=== PATIENT | male | born 1965 | race African-American/Black ===

== ENCOUNTER 2018-08-26 15:27 | Inpatient (IN) | payer OTHER ==
[2018-08-26 17:45] VITALS: BMI 19.5
--- NOTE | 2018-08-26 20:23 | HP ---
CIWA Score - Admission Criteria OASAS Guidelines: Admission for Medically Managed Detox: Requires at least one of the followin. CIWA greater than 12 2. Seizures within the past 24 hours 3. Delirium tremens within the past 24 hours 4. Hallucinations within the past 24 hours 5. Acute intervention needed for co occurring medical disorder 6. Acute intervention needed for co occurring psychiatric disorder 7. Severe withdrawal that cannot be handled at a lower level of care (continued vomiting, continued diarrhea, abnormal vital signs) requiring intravenous medication and/or fluids 8. Admission ROS [facility] - HPI Chief Complaint: Seeking admission to Rehab. Allergies/Adverse Reactions: Allergies Allergy/AdvReac Type Severity Reaction Status Date / Time No Known Allergies Allergy Verified 08/26/18 20:16 History of Present Illness: 53 years old male is seeking admission to Rehab. This is his first admission to [facility]. He has medical history of HIV+ and Hep. C. He denies suicidal ideation at this time. Exam Limitations: No Limitations - Ebola screening Have you traveled outside of the country in the last 21 days: No Have you had contact with anyone from an Ebola affected area: No Have you been sick,other than usual withdrawal symptoms: No - Review of Systems Constitutional: No Symptoms Reported EENT: reports: No Symptoms Reported Respiratory: reports: No Symptoms reported Cardiac: reports: No Symptoms Reported GI: reports: No Symptoms Reported : reports: No Symptoms Reported Musculoskeletal: reports: No Symptoms Reported Integumentary: reports: No Symptoms Reported Neuro: reports: No Symptoms reported Endocrine: reports: No Symptoms Reported Hematology: reports: No Symptoms Reported Psychiatric: reports: No Sypmtoms Reported, Mood/Affect Appropiate, Orientated x3 Other Systems: Reviewed and Negative Patient History - Patient Medical History Hx Anemia: No Hx Asthma: No Hx Chronic Obstructive Pulmonary Disease (COPD): No Hx Cancer: No Hx Cardiac Disorders: No Hx Congestive Heart Failure: No Hx Hypertension: No Hx Hypercholesterolemia: No Hx Pacemaker: No HX Cerebrovascular Accident: No Hx Seizures: No Hx Dementia: No Hx Diabetes: No Hx Gastrointestinal Disorders: No Hx Liver Disease: No Hx Genitourinary Disorders: No Hx Sexually Transmitted Disorders: No Hx Renal Disease (ESRD): No Hx Thyroid Disease: No Hx Human Immunodeficiency Virus (HIV): Yes (Diagnosed in 1985 - on medication) Hx Hepatitis C: Yes (Not on medication) Hx Depression: No Hx Suicide Attempt: No Hx Bipolar Disorder: No Hx Schizophrenia: No - Patient Surgical History Past Surgical History: No - PPD History Previous Implant?: Yes Documented Results: Negative w/o proof Implanted On Prior R Admission?: No PPD to be Administered?: Yes - Reproductive History Patient is a Female of Child Bearing Age (11 -55 yrs old): No (MALE) - Smoking Cessation Smoking history: Never smoked Have you smoked in the past 12 months: No Hx Chewing Tobacco Use: No Initiated information on smoking cessation: No - Substance & Tx. History Hx Alcohol Use: No Hx Substance Use: Yes Substance Use Type: Heroin Hx Substance Use Treatment: Yes - Substances Abused Heroin Route: Inhalation Frequency: Daily Amount used: 50 bags Age of first use: 16 Date of Last Use: 08/21/18 Family Disease History - Family Disease History Family History: Denies Admission Physical Exam [facility] - Vital Signs Vital Signs: Vital Signs - 24 hr 08/26/18 17:43 Temperature 97.6 F Pulse Rate 66 Respiratory 18 Rate Blood Pressure 129/79 - Physical General Appearance: Yes: Within Normal Limits HEENTM: Yes: EOMI, Normal ENT Inspection, Normocephalic, Normal Voice, STEFANO Respiratory: Yes: Lungs Clear, Normal Breath Sounds, No Respiratory Distress Neck: Yes: Supple Breast: Yes: Breast Exam Deferred Cardiology: Yes: Regular Rhythm, Regular Rate Abdominal: Yes: Normal Bowel Sounds, Soft Genitourinary: Yes: Within Normal Limits Back: Yes: Normal Inspection Musculoskeletal: Yes: Within Normal Limits Extremities: Yes: Normal Inspection Neurological: Yes: accountant assistant II-XII NML intact, Alert, Normal Mood/Affect Integumentary: Yes: Warm Lymphatic: Yes: Within Normal Limits - Diagnostic (1) HIV (human immunodeficiency virus infection) Current Visit: Yes Status: Chronic (2) Hep C w/o coma, chronic Current Visit: Yes Status: Chronic (3) Opioid dependence Current Visit: Yes Status: Acute Qualifiers: Substance use status: uncomplicated Qualified Code(s): F11.20 - Opioid dependence, uncomplicated Cleared for Admission [facility] - Detox or Rehab [facility] Level of Care: Observation Bed Claeared for Rehab Admission: Yes [facility] Breath Alcohol Content Breath Alcohol Content: 0 Urine Drug Screen - Results Drug Screen Negative: No Urine Drug Screen Results: BZO-Benzodiazepines, MTD-Methadone Inpatient Rehab Admission - Initial Determination Are CD services needed?: Yes Free of communicable disease: Yes Not in need of hospitalization: Yes - Rehab Admission Criteria Previous failed treatment: Yes Poor recovery environment: Yes Comorbidities: Yes Lacks judgement: No Patient is meeting Inpatient Rehab admission criteria:: Yes
[2018-08-26] MEDS ORDERED: ACETAMINOPHEN 325 MG TABLET (FP) PO PRN (20:35)
[2018-08-26] MEDS ORDERED: P-EPHED 60MG/TRIPROLIDI 2.5MG TABLET PO PRN (20:35)
[2018-08-26] MEDS ORDERED: MAGNESIUM CITRATE 300 ML BOTTLE PO PRN (20:35)
[2018-08-26] MEDS ORDERED: MAGNESIUM HYDROX 2400MG/30ML ORAL SUSPENSION 30 ML CUP PO PRN (20:35)
[2018-08-26] MEDS ORDERED: LOPERAMIDE HCL 2 MG CAPSULE PO PRN (20:35)
[2018-08-26] MEDS ORDERED: guaiFENesin/D-METHORPHAN HB 10 ML UNIT-DOSE CUPS PO PRN (20:35)
[2018-08-26] MEDS ORDERED: TUBERCULIN PPD 5 TU/0.1ML VIAL ID ONE ×2 (22:19→23:36)
[2018-08-26] MEDS: THIAMINE HCL 100 MG TABLET (FP) PO SCH (22:22)
[2018-08-26] MEDS: IBUPROFEN 400 MG TABLET (FP) PO PRN (22:22)
[2018-08-26] MEDS: MELATONIN 5 MG TABLETS PO PRN (22:22)
[2018-08-26 23:21] LABS: URINE APPEARANCE CLEAR; URINE BILIRUBIN NEGATIVE (<2.0 mg/dL); URINE COLOR YELLOW; URINE GLUCOSE (UA) NEGATIVE (NEGATIVE); URINE KETONE NEGATIVE (NEGATIVE); URINE LEUK ESTERASE NEGATIVE (NEGATIVE); URINE NITRITE NEGATIVE (NEGATIVE); URINE PROTEIN NEGATIVE (NEGATIVE); URINE UROBILINOGEN NEGATIVE mg/dL (0.2-1.0)
[2018-08-27] MEDS: IBUPROFEN 400 MG TABLET (FP) PO PRN ×2 (06:44→15:00)
[2018-08-27] MEDS: MAG HYDROX/AL HYDROX/SIMETH 30 ML UNIT-DOSE CUP PO PRN ×3 (08:47→22:20)
[2018-08-27] MEDS: PRENATAL VITAMINS W/ FOLIC ACID TABLET (FP) PO SCH (10:13)
[2018-08-27 10:42] LABS: HEMATOCRIT 41.5 % (35.4-49); HEMOGLOBIN 13.1 GM/dL (11.7-16.9); MCH 29.7 pg (25.7-33.7); MCHC 31.6 g/dl (32.0-35.9); MEAN CELL VOLUME 93.8 fl (80-96); MEAN PLT VOLUME 9.8 fl (7.5-11.1); PLATELET COUNT 224 K/MM3 (134-434); RBC 4.42 M/mm3 (4.00-5.60); RDW 13.5 % (11.9-15.9); WHITE BLOOD COUNT 6.3 K/mm3 (4.0-10.0)
[2018-08-27 10:56] LABS: ALBUMIN 3.9 g/dl (3.4-5.0); ALK PHOS 118 U/L (45-117); ANION GAP 8 MMOL/L (8-16); BILIRUBIN,TOTAL 0.2 mg/dL (0.2-1); BLOOD UREA NITROGEN 22 mg/dL (7-18); CALCIUM 9.7 mg/dL (8.5-10.1); CHLORIDE 101 mmol/L (98-107); CO2 28 mmol/L (21-32); CREATININE 1.2 mg/dL (0.55-1.3); GLUCOSE,RANDOM 110 mg/dL (74-106); POTASSIUM 4.6 mmol/L (3.5-5.1); SGOT/AST 43 U/L (15-37); SGPT/ALT 44 U/L (13-61); SODIUM 137 mmol/L (136-145); TOT PROT 9.8 g/dl (6.4-8.2)
--- NOTE | 2018-08-27 11:59 | EKG ---
Test Reason : Blood Pressure : / mmHG Vent. Rate : 071 BPM Atrial Rate : 071 BPM P-R Int : 176 ms QRS Dur : 094 ms QT Int : 406 ms P-R-T Axes : 063 -47 022 degrees QTc Int : 441 ms NORMAL SINUS RHYTHM POSSIBLE LEFT ATRIAL ENLARGEMENT LEFT AXIS DEVIATION INCOMPLETE RIGHT BUNDLE BRANCH BLOCK LEFT VENTRICULAR HYPERTROPHY CANNOT RULE OUT SEPTAL INFARCT , AGE UNDETERMINED ABNORMAL ECG WHEN COMPARED WITH ECG OF 26-AUG-2018 23:10, LEFT ANTERIOR FASCICULAR BLOCK IS NO LONGER PRESENT INCOMPLETE RIGHT BUNDLE BRANCH BLOCK IS NOW PRESENT MINIMAL CRITERIA FOR SEPTAL INFARCT ARE NOW PRESENT Confirmed by LUDMILA HOLBROOK MD ([id number]) on 08/27/2018 11:59:25 AM Referred By: Confirmed By:LUDMILA HOLBROOK MD
--- NOTE | 2018-08-27 12:00 | EKG ---
Test Reason : Blood Pressure : / mmHG Vent. Rate : 072 BPM Atrial Rate : 072 BPM P-R Int : 178 ms QRS Dur : 078 ms QT Int : 378 ms P-R-T Axes : 082 -60 057 degrees QTc Int : 413 ms NORMAL SINUS RHYTHM LEFT ANTERIOR FASCICULAR BLOCK ABNORMAL ECG NO PREVIOUS ECGS AVAILABLE Confirmed by LUDMILA HOLBROOK MD ([id number]) on 08/27/2018 12:00:05 PM Referred By: Confirmed By:LUDMILA HOLBROOK MD
--- NOTE | 2018-08-27 12:35 | HP ---
Psychiatrist Admission - Data Date of interview: 08/27/18 Admission source: [facility] Identifying data: Patient is a 53 year old single male, father of two, unemployed, homeless, and is supported by [facility]. This is patient's first admission to detox at [facility]. Patient admitted to for opioid dependence. Medical History: HIV, Hep C Psychiatric History: Patient denies h/o psychiatric hospitalization, outpatient care, and suicide attempt. Physical/Sexual Abuse/Trauma History: denies. Vital Signs: Vital Signs - 24 hr 08/26/18 08/26/18 08/27/18 17:43 22:24 00:30 Temperature 97.6 F 98.0 F Pulse Rate 66 68 Respiratory 18 18 18 Rate Blood Pressure 129/79 120/75 08/27/18 08/27/18 03:30 06:48 Temperature 98.8 F Pulse Rate 67 Respiratory 18 18 Rate Blood Pressure 120/84 Allergies/Adverse Reactions: Allergies Allergy/AdvReac Type Severity Reaction Status Date / Time No Known Allergies Allergy Verified 08/26/18 20:16 Date of last physical exam: 08/27/18 Concur with the findings of this exam: Yes - Substance Abuse/Tx History Hx Alcohol Use: No Hx Substance Use: Yes (Heroin- 50 bags daily) Substance Use Type: Heroin Hx Substance Use Treatment: Yes (This is patient's first rehab.) Mental Status Exam - Mental Status Exam Alert and Oriented to: Time, Place, Person Cognitive Function: Good Patient Appearance: Well Groomed Mood: Euthymic Affect: Mood Congruent Patient Behavior: Cooperative Speech Pattern: Appropriate Voice Loudness: Mildly Soft/Quiet Thought Process: Intact, Goal Oriented Thought Disorder: Not Present Hallucinations: Denies Suicidal Ideation: Denies Homicidal Ideation: Denies Insight/Judgement: Poor Sleep: Poorly Appetite: Fair Muscle strength/Tone: Normal Gait/Station: Normal Psychiatric Findings - Problem List (Thelma 1, 2,3) (1) Substance-induced sleep disorder Current Visit: Yes Status: Acute (2) Opioid dependence Current Visit: Yes Status: Acute Qualifiers: Substance use status: uncomplicated Qualified Code(s): F11.20 - Opioid dependence, uncomplicated - Initial Treatment Plan Initial Treatment Plan: Psychoeducation provided. Rehab in progress. Will order Trazodone 50mg qhs. Patient made aware of the risk of priapism when accepting trazodone. Verbal consent given.
--- NOTE | 2018-08-27 13:46 | PN ---
[facility] Progress Note Note: PT IS A NEW ADMIT WHO WAS DETOXED FROM OPIOID AT [facility] AND REFERRED HERE FOR REHAB. PT REPORTS HE COMPLETED 08/26/18 BEFORE REHAB. PT IS ON ATRIPLA I TAB PO DAILY AND WANTS IT AT HS. PT C/O MUSCLE ACHES AND IRRITABILITY. Vital Signs 08/27/18 06:48 Temperature 98.8 F Pulse Rate 67 Respiratory 18 Rate Blood Pressure 120/84 Laboratory Tests 08/26/18 08/27/18 08/27/18 22:00 07:40 07:40 WBC 6.3 RBC 4.42 Hgb 13.1 Hct 41.5 MCV 93.8 MCH 29.7 MCHC 31.6 L RDW 13.5 Plt Count 224 MPV 9.8 Sodium 137 Potassium 4.6 Chloride 101 Carbon Dioxide 28 Anion Gap 8 BUN 22 H Creatinine 1.2 Creat Clearance w eGFR > 60 Random Glucose 110 H Calcium 9.7 Total Bilirubin 0.2 AST 43 H ALT 44 Alkaline Phosphatase 118 H Total Protein 9.8 H Albumin 3.9 Urine Color Yellow Urine Appearance Clear Urine pH 6.0 Ur Specific Lucas 1.023 Urine Protein Negative Urine Glucose (UA) Negative Urine Ketones Negative Urine Blood Negative Urine Nitrite Negative Urine Bilirubin Negative Urine Urobilinogen Negative Ur Leukocyte Esterase Negative RPR Titer 08/27/18 07:40 WBC RBC Hgb Hct MCV MCH MCHC RDW Plt Count MPV Sodium Potassium Chloride Carbon Dioxide Anion Gap BUN Creatinine Creat Clearance w eGFR Random Glucose Calcium Total Bilirubin AST ALT Alkaline Phosphatase Total Protein Albumin Urine Color Urine Appearance Urine pH Ur Specific Lucas Urine Protein Urine Glucose (UA) Urine Ketones Urine Blood Urine Nitrite Urine Bilirubin Urine Urobilinogen Ur Leukocyte Esterase RPR Titer Nonreactive NAD PLAN:CLONIDINE 0.1 MG PO BID PRN FLEXERIL 10 MG PO TID REORDER ATRIPLA 1 TAB PO HS RE-EVALUATE FOR SUBOXONE TREATMENT IF DESIRED.
[2018-08-27] MEDS: THIAMINE HCL 100 MG TABLET (FP) PO SCH (21:23)
[2018-08-27] MEDS: EFAVIRENZ 600 MG TABLET PO SCH (21:23)
[2018-08-27] MEDS: EMTRICITABINE 200MG/TENOFOVIR 300MG PO SCH (21:24)
[2018-08-27] MEDS: traZODone HCL 50 MG TABLET (FP) PO SCH (21:25)
[2018-08-27] MEDS: CYCLOBENZAPRINE HCL 10 MG TABLET (FP) PO SCH (21:25)
[2018-08-27] MEDS: cloNIDine HCL 0.1 MG TABLET PO SCH (21:26)
[2018-08-27] MEDS ORDERED: PATIENT'S OWN MEDICATION (NON-FORMULARY) (Efavirenz/Emtricitab/Tenofovir 1 TAB) PO SCH (22:00)
[2018-08-27] MEDS: MELATONIN 5 MG TABLETS PO PRN (22:20)
[2018-08-28] MEDS: IBUPROFEN 400 MG TABLET (FP) PO PRN (05:33)
[2018-08-28] MEDS: CYCLOBENZAPRINE HCL 10 MG TABLET (FP) PO SCH ×3 (05:34→21:29)
--- NOTE | 2018-08-28 09:40 | PN ---
[facility] Progress Note Note: Pt requesting suboxone treatment. Says he has been on this before and would like to restart. Was taking a lot heroin- last use about 10 days ago- went to methadone detox and now in rehab. Pt states that he feels like he is in withdrawal- whole body aches/pain. Will start suboxone 8mg BID
[2018-08-28] MEDS: cloNIDine HCL 0.1 MG TABLET PO SCH ×2 (10:09→21:29)
[2018-08-28] MEDS: PRENATAL VITAMINS W/ FOLIC ACID TABLET (FP) PO SCH (10:09)
[2018-08-28] MEDS: BUPRENORPHINE/NALOXONE 8 MG/2 MG FILM PACKET SL SCH ×2 (10:11→21:29)
[2018-08-28] MEDS: THIAMINE HCL 100 MG TABLET (FP) PO SCH (21:29)
[2018-08-28] MEDS: traZODone HCL 50 MG TABLET (FP) PO SCH (21:29)
[2018-08-28] MEDS: EMTRICITABINE 200MG/TENOFOVIR 300MG PO SCH (21:32)
[2018-08-28] MEDS: EFAVIRENZ 600 MG TABLET PO SCH (21:32)
[2018-08-28] MEDS: MELATONIN 5 MG TABLETS PO PRN (21:33)
[2018-08-29] MEDS: CYCLOBENZAPRINE HCL 10 MG TABLET (FP) PO SCH ×3 (06:24→21:20)
[2018-08-29] MEDS: MENTHOL/PHENOL 1 EACH UD MM PRN ×3 (06:26→14:13)
[2018-08-29] MEDS: PRENATAL VITAMINS W/ FOLIC ACID TABLET (FP) PO SCH (09:44)
[2018-08-29] MEDS: BUPRENORPHINE/NALOXONE 8 MG/2 MG FILM PACKET SL SCH ×2 (09:44→21:20)
[2018-08-29] MEDS: cloNIDine HCL 0.1 MG TABLET PO SCH ×2 (09:44→21:20)
[2018-08-29] MEDS: IBUPROFEN 400 MG TABLET (FP) PO PRN (14:49)
[2018-08-29] MEDS: THIAMINE HCL 100 MG TABLET (FP) PO SCH (21:20)
[2018-08-29] MEDS: traZODone HCL 50 MG TABLET (FP) PO SCH (21:20)
[2018-08-29] MEDS: EMTRICITABINE 200MG/TENOFOVIR 300MG PO SCH (21:21)
[2018-08-29] MEDS: MELATONIN 5 MG TABLETS PO PRN (21:21)
[2018-08-29] MEDS: EFAVIRENZ 600 MG TABLET PO SCH (21:21)
[2018-08-30] MEDS: CYCLOBENZAPRINE HCL 10 MG TABLET (FP) PO SCH ×3 (06:26→21:21)
[2018-08-30] MEDS: BUPRENORPHINE/NALOXONE 8 MG/2 MG FILM PACKET SL SCH ×2 (10:08→21:23)
[2018-08-30] MEDS: PRENATAL VITAMINS W/ FOLIC ACID TABLET (FP) PO SCH (10:08)
[2018-08-30] MEDS: cloNIDine HCL 0.1 MG TABLET PO SCH ×2 (10:08→21:21)
[2018-08-30] MEDS: THIAMINE HCL 100 MG TABLET (FP) PO SCH (21:21)
[2018-08-30] MEDS: traZODone HCL 50 MG TABLET (FP) PO SCH (21:21)
[2018-08-30] MEDS: EMTRICITABINE 200MG/TENOFOVIR 300MG PO SCH (21:22)
[2018-08-30] MEDS: EFAVIRENZ 600 MG TABLET PO SCH (21:22)
[2018-08-30] MEDS: MELATONIN 5 MG TABLETS PO PRN (21:23)
[2018-08-31] MEDS: MENTHOL/PHENOL 1 EACH UD MM PRN (06:35)
[2018-08-31] MEDS: CYCLOBENZAPRINE HCL 10 MG TABLET (FP) PO SCH (06:35)
[2018-08-31 07:01] VITALS: BP 132/89; PULSE 67; TEMP 98.8
[2018-08-31] MEDS: PRENATAL VITAMINS W/ FOLIC ACID TABLET (FP) PO SCH (10:20)
[2018-08-31] MEDS: BUPRENORPHINE/NALOXONE 8 MG/2 MG FILM PACKET SL SCH (10:21)
[2018-08-31] MEDS: cloNIDine HCL 0.1 MG TABLET PO SCH (10:21)
== END 2018-08-31 10:50 | disposition left against medical advice (07) | DRG 770 ==
LOC: YASAS 15:27 → Y5N 20:39
PROVIDERS: ADMIT Psychiatry & Neurology Psychiatry; ATTEND Psychiatry & Neurology Psychiatry
PROC: HZ42ZZZ Group Counseling for Substance Abuse Treatment, Cognitive-Behavioral (ICD-10-PCS; principal; 2018-08-26)
DX: F11.20 Opioid dependence, uncomplicated (principal); F19.282 Other psychoactive substance dependence with psychoactive substance-induced sleep disorder; Z21 Asymptomatic human immunodeficiency virus [HIV] infection status; B18.2 Chronic viral hepatitis C; Z59.0 Homelessness
CPT/HCPCS: 36415; 80053; 81003; 85027; 86593; 93005; 93010; J0735

== ENCOUNTER 2019-11-11 19:03 | Inpatient (IN) | payer OTHER ==
--- NOTE | 2019-11-11 19:55 | BHS.RME ---
Substance Use & Tx History - Substance Use History Opiates (Heroin) Substance amount: 5 bundles Frequency of use: Daily Substance route: Inhalation (ex: sniffing or snorting), Injection (ex: intravenous or skin popping) Date of Last Use: 11/11/19 (this am) Cocaine (Powder) Substance amount: 1 vial Frequency of use: Less than 3 times per week Substance route: Smoking Date of Last Use: 11/09/19 Physical/Psych/Mental Status - Behavior General Behavior: Increased activity (restlessness, agitation) Eye Contact: Decreased - Cooperativeness Cooperativeness: Reluctant - Thinking Thought content: Future oriented - Physical Health Problems Is patient presently having any pain?: Yes (r/t withdrawal ) Does patient presently have any injuries (include location): No Does patient currently have a fever: No Is patient : No COWS - Scale Resting Pulse: 0= [place] 80 or Below Sweatin= Chills/Flushing Restless Observation: 0= Sits Still Pupil Size: 2= Moderately Dilated (Pupils = 3 mm) Bone or Joint Aches: 1= Mild Discomfort Runny Nose/ Eye Tearin= None GI Upset > 30mins: 2= Nausea/Diarrhea Tremor Observation: 1= Tremor [place], Not Seen Yawning Observation: 0= None Anxiety or Irritability: 2=Irritable/Anxious Goose Flesh Skin: 0=Smooth Skin COWS Score: 9 CIWA Nausea/Vomitin-No Nausea/No Vomiting Muscle Tremors: 3 Anxiety: 4-Mod. Anxious/Guarded Agitation: 1-Slight > Activity Paroxysmal Sweats: No Perspiration Orientation: 0-Oriented Tacttile Disturbances: 0-None Auditory Disturbances: 0-None Visual Disturbances: 0-None Headache: 0-None Present CIWA-Ar Total Score: 8
[2019-11-11 20:49] VITALS: BMI 20.9
--- NOTE | 2019-11-11 21:49 | HP ---
"COWS - Scale Resting Pulse: 0= [place] 80 or Below Sweatin= Chills/Flushing Restless Observation: 0= Sits Still Pupil Size: 2= Moderately Dilated (Pupils = 4 mm) Bone or Joint Aches: 1= Mild Discomfort Runny Nose/ Eye Tearin= None GI Upset > 30mins: 2= Nausea/Diarrhea Tremor Observation: 1= Tremor [place], Not Seen Yawning Observation: 0= None Anxiety or Irritability: 2=Irritable/Anxious Goose Flesh Skin: 0=Smooth Skin COWS Score: 9 (Co-morbidity: HIV+) CIWA Score Nausea/Vomitin-No Nausea/No Vomiting Muscle Tremors: 3 Anxiety: 4-Mod. Anxious/Guarded Agitation: 1-Slight > Activity Paroxysmal Sweats: No Perspiration Orientation: 0-Oriented Tacttile Disturbances: 0-None Auditory Disturbances: 0-None Visual Disturbances: 0-None Headache: 0-None Present CIWA-Ar Total Score: 8 - Admission Criteria OASAS Guidelines: Admission for Medically Managed Detox: Requires at least one of the followin. CIWA greater than 12 2. Seizures within the past 24 hours 3. Delirium tremens within the past 24 hours 4. Hallucinations within the past 24 hours 5. Acute intervention needed for co occurring medical disorder 6. Acute intervention needed for co occurring psychiatric disorder 7. Severe withdrawal that cannot be handled at a lower level of care (continued vomiting, continued diarrhea, abnormal vital signs) requiring intravenous medication and/or fluids 8. Admitting History and Physical - Smoking History Smoking history: Never smoked Have you smoked in the past 12 months: No - Alcohol/Substance Use Hx Alcohol Use: No Admission ROS [facility] Chief Complaint: Here because want to stop using heroin. Allergies/Adverse Reactions: Allergies Allergy/AdvReac Type Severity Reaction Status Date / Time No Known Allergies Allergy Verified 11/11/19 20:46 History of Present Illness: 54 yo with withdrawal symptoms seeking heroin detox. Last detox 2 months ago and relapsed 1 week after discharge. Denies hx seizures, blackouts or overdose. Heroin use reviewed. [facility] uses 5 bundles/day both IV and nasally. [facility] last used this a.m. [facility] has a narcan kit at home. Cocaine/Crack use intermittently. (Smokes. Denies methadone or suboxone treatment programs in the past. Denies alcohol use. Denies nicotine use. PMHx: HIV+ (States not taking HIV meds) 2018: Abnormal EKG noted. MHHx: Denies thoughts of harming self or others. SHx: Domiciled. Unemployed. Denies legal problems. Search Terms: Ezequiel Gist, 1965 Search Date: 11/11/2019 09:48:24 PM The Drug Utilization Report below displays all of the controlled substance prescriptions, if any, that your patient has filled in the last twelve months. The information displayed on this report is compiled from pharmacy submissions to the Department, and accurately reflects the information as submitted by the pharmacies. This report was requested by: Rut Rogers | Reference #: [id number] There are no results for the search terms that you entered. Exam Limitations: No Limitations - Ebola screening Have you traveled outside of the country in the last 21 days: No Have you had contact with anyone from an Ebola affected area: No Have you been sick,other than usual withdrawal symptoms: No Do you have a fever: No - Review of Systems Constitutional: Chills, Diaphoresis, Unintentional Wgt. Loss EENT: reports: No Symptoms Reported Respiratory: reports: No Symptoms reported Cardiac: reports: No Symptoms Reported GI: reports: Diarrhea (Last BM 10 min ago, soft, brown) : reports: No Symptoms Reported Musculoskeletal: reports: No Symptoms Reported Integumentary: reports: No Symptoms Reported Neuro: reports: No Symptoms reported Endocrine: reports: No Symptoms Reported Hematology: reports: Other (HIV) Psychiatric: reports: Judgement Intact, Orientated x3, Agitated Patient History - Patient Medical History Hx Anemia: No Hx Asthma: No Hx Chronic Obstructive Pulmonary Disease (COPD): No Hx Cancer: No Hx Cardiac Disorders: No Hx Congestive Heart Failure: No Hx Hypertension: No Hx Hypercholesterolemia: No Hx Pacemaker: No HX Cerebrovascular Accident: No Hx Seizures: No Hx Dementia: No Hx Diabetes: No Hx Gastrointestinal Disorders: No Hx Liver Disease: No Hx Genitourinary Disorders: No Hx Sexually Transmitted Disorders: No Hx Renal Disease (ESRD): No Hx Thyroid Disease: No Hx Human Immunodeficiency Virus (HIV): Yes (Diagnosed in 1985 - on medication) Hx Hepatitis C: Yes (Not on medication) Hx Depression: No Hx Suicide Attempt: No Hx Bipolar Disorder: No Hx Schizophrenia: No - Patient Surgical History Past Surgical History: No Hx Neurologic Surgery: No Hx Cataract Extraction: No Hx Cardiac Surgery: No Hx Lung Surgery: No Hx Breast Surgery: No Hx Breast Biopsy: No Hx Abdominal Surgery: No Hx Appendectomy: No Hx Cholecystectomy: No Hx Genitourinary Surgery: No Hx Section: No Hx Orthopedic Surgery: No Anesthesia Reaction: No - PPD History Previous Implant?: Yes Documented Results: Negative w/proof Implanted On Prior [facility] Admission?: Yes Date: 08/28/18 PPD to be Administered?: Yes - Smoking Cessation Smoking history: Never smoked Have you smoked in the past 12 months: No Hx Chewing Tobacco Use: No Initiated information on smoking cessation: No - Substance & Tx. History Hx Alcohol Use: No Hx Substance Use: Yes Substance Use Type: Cocaine, Heroin, Opiates Hx Substance Use Treatment: Yes (detox, ) - Substances abused Heroin Substance route: Injection Frequency: Daily Amount used: 50 bags Age of first use: 16 Date of last use: 11/11/19 Admission Physical Exam [facility] - Vital Signs Vital Signs: Vital Signs - 24 hr 11/11/19 11/11/19 20:46 20:49 Temperature 97.8 F 97.8 F Pulse Rate 66 66 Respiratory 18 18 Rate Blood Pressure 122/70 122/70 - Physical General Appearance: Yes: Mild Distress, Thin, Tremorous (Mild tremors felt), Irritable, Sweating (Increased facial moisture) HEENTM: Yes: EOMI, Hearing grossly Normal, Normocephalic, STEFANO (Pupils = 4 mm), Pharynx Normal, Other (Superficial abrasion (L) cheek) Respiratory: Yes: Lungs Clear (Pulse ox =96%), Normal Breath Sounds, No Respiratory Distress Neck: Yes: No masses,lesions,Nodules, Supple Breast: Yes: Breast Exam Deferred Cardiology: Yes: Regular Rhythm, Regular Rate, S1, S2, Murmur Abdominal: Yes: Non Tender, Flat, Soft, Increased Bowel Sounds Genitourinary: Yes: Within Normal Limits Back: Yes: Normal Inspection Musculoskeletal: Yes: full range of Motion, Gait Steady Extremities: Yes: Normal Capillary Refill (periph pulse+), Tremors (Mild tremors felt), Pedal Edema (Srinivasa pedal edema toes to below ankle.) Neurological: Yes: health sanitarian II-XII NML intact, Fully Oriented, Alert, Motor Strength 5/5, Normal Response Integumentary: Yes: Normal Color, Warm, Moist (Increased facial moisture), Other (Decreased skin turgor) Lymphatic: Yes: Within Normal Limits - Diagnostic (1) Opioid dependence with withdrawal Current Visit: Yes Status: Acute (2) Cocaine dependence, uncomplicated Current Visit: Yes Status: Chronic (3) HIV (human immunodeficiency virus infection) Current Visit: Yes Status: Chronic Qualifiers: HIV symptom status: unspecified Qualified Code(s): B20 - Human immunodeficiency virus [HIV] disease (4) Abrasion Current Visit: Yes Status: Acute (5) Cardiac murmur Current Visit: Yes Status: Acute (6) History of abnormal electrocardiogram Current Visit: Yes Status: Chronic (7) Pedal edema Current Visit: Yes Status: Chronic Cleared for Admission S - Detox or Rehab [facility] Level of Care: Medically Managed Detox Regimen/Protocol: Methadone Claeared for Rehab Admission: No Breathalyzer - Breathalyzer Breathalyzer: 0 Urine Drug Screen - Test Device Lot number: [id number] Expiration date: 08/23/21 - Control Is test valid?: Yes - Results Drug screen NEGATIVE: No Urine drug screen results: FILIBERTO-Cocaine, FEN-Fentanyl, MOP-Opiates Inpatient Rehab Admission - Rehab Decision to Admit Inpatient rehab admission?: No"
[2019-11-11] MEDS ORDERED: MAGNESIUM HYDROX 2400MG/30ML ORAL SUSPENSION 30 ML CUP PO PRN (22:09)
[2019-11-11] MEDS ORDERED: cloNIDine HCL 0.1 MG TABLET PO PRN (22:09)
[2019-11-11] MEDS ORDERED: ACETAMINOPHEN 325 MG TABLET (FP) PO PRN ×2 (22:09)
[2019-11-11] MEDS ORDERED: MENTHOL/PHENOL 1 EACH UD MM PRN (22:09)
[2019-11-11] MEDS ORDERED: guaiFENesin 200 MG/10 ML 10 ML UNIT-DOSE CUPS PO PRN (22:09)
[2019-11-11] MEDS ORDERED: MAGNESIUM CITRATE 300 ML BOTTLE PO PRN (22:09)
[2019-11-11] MEDS ORDERED: MAG HYDROX/AL HYDROX/SIMETH 30 ML UNIT-DOSE CUP PO PRN (22:09)
[2019-11-11] MEDS ORDERED: IBUPROFEN 400 MG TABLET (FP) PO PRN (22:09)
[2019-11-11] MEDS ORDERED: BISMUTH SUBSALICYLATE 524 MG/30 ML UD PO PRN (22:09)
[2019-11-11] MEDS ORDERED: METHADONE HCL 10 MG TABLET (FOR DETOX USE ONLY) PO ONE (22:45)
[2019-11-11] MEDS ORDERED: METHADONE (DETOX) 20 MG, METHADONE (DETOX) 5 MG PO ONE (23:52)
[2019-11-11] MEDS ORDERED: METHADONE HCL 10 MG TABLET (FOR DETOX USE ONLY) ONE (23:54)
[2019-11-11] MEDS ORDERED: METHADONE HCL 5 MG TABLET (FOR DETOX USE ONLY) ONE (23:55)
[2019-11-11] MEDS: BACITRACIN 0.9 GM PACKET TP SCH (23:58)
[2019-11-12] MEDS ORDERED: METHADONE HCL 5 MG TABLET (FOR DETOX USE ONLY) ONE (09:38)
[2019-11-12] MEDS ORDERED: METHADONE HCL 10 MG TABLET (FOR DETOX USE ONLY) ONE (09:38)
[2019-11-12 09:49] LABS: HEMATOCRIT 35.5 % (35.4-49); HEMOGLOBIN 11.7 GM/dL (11.7-16.9); MCH 29.4 pg (25.7-33.7); MCHC 32.9 g/dl (32.0-35.9); MEAN CELL VOLUME 89.2 fl (80-96); MEAN PLT VOLUME 9.5 fl (7.5-11.1); PLATELET COUNT 147 K/MM3 (134-434); RBC 3.98 M/mm3 (4.00-5.60); RDW 14.8 % (11.9-15.9); WHITE BLOOD COUNT 3.1 K/mm3 (4.0-10.0)
[2019-11-12] MEDS ORDERED: METHADONE (DETOX) 20 MG, METHADONE (DETOX) 5 MG PO ONE (10:00)
[2019-11-12 10:17] LABS: BILIRUBIN,TOTAL 0.2 mg/dL (0.2-1); BLOOD UREA NITROGEN 23.8 mg/dL (7-18); CALCIUM 8.7 mg/dL (8.5-10.1); TOT PROT 7.1 g/dl (6.4-8.2)
[2019-11-12] MEDS: BACITRACIN 0.9 GM PACKET TP SCH ×2 (10:48→22:45)
[2019-11-12] MEDS: VITAMINS A AND D TOPICAL OINTMENT 60 GM TUBE TP SCH ×2 (10:48→22:45)
[2019-11-12] MEDS: PRENATAL VITAMINS W/ FOLIC ACID TABLET (FP) PO SCH (10:48)
--- NOTE | 2019-11-12 12:11 | EKG ---
Test Reason : Blood Pressure : / mmHG Vent. Rate : 066 BPM Atrial Rate : 066 BPM P-R Int : 176 ms QRS Dur : 078 ms QT Int : 446 ms P-R-T Axes : 068 -41 014 degrees QTc Int : 467 ms NORMAL SINUS RHYTHM LEFT AXIS DEVIATION MINIMAL VOLTAGE CRITERIA FOR LVH, MAY BE NORMAL VARIANT SEPTAL INFARCT (CITED ON OR BEFORE 27-AUG-2018) T WAVE ABNORMALITY, CONSIDER ANTERIOR ISCHEMIA CANNOT RULE OUT SEPTAL INFARCT , AGE UNDETERMINED ABNORMAL ECG CLINICAL CORRELATION IS RECOMMENDED Confirmed by CR POWER MD ([id number]) on 11/12/2019 12:10:55 PM Referred By: Reza Singh Confirmed By:CR POWER MD
--- NOTE | 2019-11-12 14:49 | PN ---
[facility] CIWA - CIWA Score Nausea/Vomitin-Mild Nausea/No Vomiting Muscle Tremors: 2 Anxiety: 2 Agitation: 2 Paroxysmal Sweats: No Perspiration Orientation: 0-Oriented Tacttile Disturbances: 1-Very Mild Itch/Numbness Auditory Disturbances: 0-None Visual Disturbances: 0-None Headache: 2-Mild CIWA-Ar Total Score: 10 S Progress Note (SOAP) Subjective: alert,irritable,anxious,interrupted sleep,pain in the body Objective: 11/12/19 14:46 Vital Signs Temperature 98.2 F 11/12/19 13:11 Pulse Rate 57 L 11/12/19 13:11 Respiratory Rate 18 11/12/19 13:11 Blood Pressure 121/79 11/12/19 13:11 O2 Sat by Pulse Oximetry (%) 11/12/19 14:48 Laboratory Last Values WBC 3.1 K/mm3 (4.0-10.0) L 11/12/19 07:25 RBC 3.98 M/mm3 (4.00-5.60) L 11/12/19 07:25 Hgb 11.7 GM/dL (11.7-16.9) 11/12/19 07:25 Hct 35.5 % (35.4-49) 11/12/19 07:25 MCV 89.2 fl (80-96) 11/12/19 07:25 MCH 29.4 pg (25.7-33.7) 11/12/19 07:25 MCHC 32.9 g/dl (32.0-35.9) 11/12/19 07:25 RDW 14.8 % (11.9-15.9) 11/12/19 07:25 Plt Count 147 K/MM3 (134-434) D 11/12/19 07:25 MPV 9.5 fl (7.5-11.1) 11/12/19 07:25 Sodium 141 mmol/L (136-145) 11/12/19 07:25 Potassium 4.0 mmol/L (3.5-5.1) 11/12/19 07:25 Chloride 111 mmol/L (98-107) H 11/12/19 07:25 Carbon Dioxide 24 mmol/L (21-32) 11/12/19 07:25 Anion Gap 6 MMOL/L (8-16) L 11/12/19 07:25 BUN 23.8 mg/dL (7-18) H 11/12/19 07:25 Creatinine 1.0 mg/dL (0.55-1.3) 11/12/19 07:25 Est GFR (CKD-EPI)AfAm 99.15 11/12/19 07:25 Est GFR (CKD-EPI)NonAf 85.55 11/12/19 07:25 Random Glucose 104 mg/dL (74-106) 11/12/19 07:25 Calcium 8.7 mg/dL (8.5-10.1) 11/12/19 07:25 Total Bilirubin 0.2 mg/dL (0.2-1) 11/12/19 07:25 AST 39 U/L (15-37) H 11/12/19 07:25 ALT 34 U/L (13-61) 11/12/19 07:25 Alkaline Phosphatase 200 U/L (45-117) H 11/12/19 07:25 Total Protein 7.1 g/dl (6.4-8.2) 11/12/19 07:25 Albumin 3.0 g/dl (3.4-5.0) L 11/12/19 07:25 RPR Titer Nonreactive (NONREACTIVE) 11/12/19 07:25 Assessment: 11/12/19 14:48 withdrawal symptom Plan: continue detox methadone regimen,dehydration,encourage oral fluid
[2019-11-12] MEDS: THIAMINE HCL 100 MG TABLET (FP) PO SCH (22:45)
[2019-11-12] MEDS: MELATONIN 5 MG TABLETS PO PRN (22:45)
[2019-11-13 09:38] LABS: URINE APPEARANCE TURBID; URINE BILIRUBIN NEGATIVE (NEGATIVE); URINE COLOR YELLOW; URINE GLUCOSE (UA) NEGATIVE (NEGATIVE); URINE KETONE NEGATIVE (NEGATIVE); URINE LEUK ESTERASE NEGATIVE (NEGATIVE); URINE NITRITE NEGATIVE (NEGATIVE); URINE PROTEIN NEGATIVE (NEGATIVE); URINE UROBILINOGEN 0.2 mg/dL (0.2-1.0)
[2019-11-13] MEDS ORDERED: METHADONE HCL 10 MG TABLET (FOR DETOX USE ONLY) PO ONE (10:00)
[2019-11-13] MEDS: VITAMINS A AND D TOPICAL OINTMENT 60 GM TUBE TP SCH ×2 (10:35→22:32)
[2019-11-13] MEDS: PRENATAL VITAMINS W/ FOLIC ACID TABLET (FP) PO SCH (10:35)
[2019-11-13] MEDS: BACITRACIN 0.9 GM PACKET TP SCH ×2 (10:36→22:32)
--- NOTE | 2019-11-13 11:56 | PN ---
S CIWA - CIWA Score Nausea/Vomitin-No Nausea/No Vomiting Muscle Tremors: None Anxiety: 3 Agitation: 1-Slight > Activity Paroxysmal Sweats: 3 Orientation: 0-Oriented Tacttile Disturbances: 0-None Auditory Disturbances: 0-None Visual Disturbances: 0-None Headache: 2-Mild CIWA-Ar Total Score: 9 S Progress Note (SOAP) Subjective: c/o irritability, anxiety, headache, and sweats. Objective: 11/13/19 11:53 Vital Signs 11/13/19 11/13/19 06:31 08:58 Temperature 98.3 F 98.5 F Pulse Rate 59 L 62 Respiratory 16 16 Rate Blood Pressure 101/59 L 109/65 Laboratory Last Values WBC 3.1 K/mm3 (4.0-10.0) L 11/12/19 07:25 RBC 3.98 M/mm3 (4.00-5.60) L 11/12/19 07:25 Hgb 11.7 GM/dL (11.7-16.9) 11/12/19 07:25 Hct 35.5 % (35.4-49) 11/12/19 07:25 MCV 89.2 fl (80-96) 11/12/19 07:25 MCH 29.4 pg (25.7-33.7) 11/12/19 07:25 MCHC 32.9 g/dl (32.0-35.9) 11/12/19 07:25 RDW 14.8 % (11.9-15.9) 11/12/19 07:25 Plt Count 147 K/MM3 (134-434) D 11/12/19 07:25 MPV 9.5 fl (7.5-11.1) 11/12/19 07:25 Sodium 141 mmol/L (136-145) 11/12/19 07:25 Potassium 4.0 mmol/L (3.5-5.1) 11/12/19 07:25 Chloride 111 mmol/L (98-107) H 11/12/19 07:25 Carbon Dioxide 24 mmol/L (21-32) 11/12/19 07:25 Anion Gap 6 MMOL/L (8-16) L 11/12/19 07:25 BUN 23.8 mg/dL (7-18) H 11/12/19 07:25 Creatinine 1.0 mg/dL (0.55-1.3) 11/12/19 07:25 Est GFR (CKD-EPI)AfAm 99.15 11/12/19 07:25 Est GFR (CKD-EPI)NonAf 85.55 11/12/19 07:25 Random Glucose 104 mg/dL (74-106) 11/12/19 07:25 Calcium 8.7 mg/dL (8.5-10.1) 11/12/19 07:25 Total Bilirubin 0.2 mg/dL (0.2-1) 11/12/19 07:25 AST 39 U/L (15-37) H 11/12/19 07:25 ALT 34 U/L (13-61) 11/12/19 07:25 Alkaline Phosphatase 200 U/L (45-117) H 11/12/19 07:25 Total Protein 7.1 g/dl (6.4-8.2) 11/12/19 07:25 Albumin 3.0 g/dl (3.4-5.0) L 11/12/19 07:25 Urine Color Yellow 11/13/19 08:00 Urine Appearance Turbid 11/13/19 08:00 Urine pH 5.0 (5.0-8.0) 11/13/19 08:00 Ur Specific [place] 1.021 (1.010-1.035) 11/13/19 08:00 Urine Protein Negative (NEGATIVE) 11/13/19 08:00 Urine Glucose (UA) Negative (NEGATIVE) 11/13/19 08:00 Urine Ketones Negative (NEGATIVE) 11/13/19 08:00 Urine Blood Negative (NEGATIVE) 11/13/19 08:00 Urine Nitrite Negative (NEGATIVE) 11/13/19 08:00 Urine Bilirubin Negative (NEGATIVE) 11/13/19 08:00 Urine Urobilinogen 0.2 mg/dL (0.2-1.0) 11/13/19 08:00 Ur Leukocyte Esterase Negative (NEGATIVE) 11/13/19 08:00 RPR Titer Nonreactive (NONREACTIVE) 11/12/19 07:25 Labs noted. Assessment: 11/13/19 11:53 AOX3, in no acute respiratory distress. Full ROM, ambulating in the unit. Withdrawal symptoms. Plan: continue detox.
[2019-11-13] MEDS: METHOCARBAMOL 500 MG TABLET PO PRN (22:31)
[2019-11-13] MEDS: THIAMINE HCL 100 MG TABLET (FP) PO SCH (22:32)
[2019-11-13] MEDS: MELATONIN 5 MG TABLETS PO PRN (22:33)
[2019-11-14] MEDS ORDERED: METHADONE HCL 10 MG TABLET (FOR DETOX USE ONLY) ONE (09:41)
[2019-11-14] MEDS ORDERED: METHADONE HCL 5 MG TABLET (FOR DETOX USE ONLY) ONE (09:41)
[2019-11-14] MEDS ORDERED: METHADONE (DETOX) 10 MG, METHADONE (DETOX) 5 MG PO ONE (10:00)
[2019-11-14] MEDS: BACITRACIN 0.9 GM PACKET TP SCH ×2 (10:17→23:01)
[2019-11-14] MEDS: VITAMINS A AND D TOPICAL OINTMENT 60 GM TUBE TP SCH ×2 (10:17→23:01)
[2019-11-14] MEDS: PRENATAL VITAMINS W/ FOLIC ACID TABLET (FP) PO SCH (10:17)
--- NOTE | 2019-11-14 11:04 | PN ---
BHS COWS - Scale Resting Pulse: 0= [place] 80 or Below Sweatin= Chills/Flushing Restless Observation: 0= Sits Still Pupil Size: 1= Pupils >than Normal Bone or Joint Aches: 1= Mild Discomfort Runny Nose/ Eye Tearin= Nasal Congestion GI Upset > 30mins: 0= None Tremor Observation of Outstretched Hands: 1= Tremor [place], Not Seen Yawning Observation: 0= None Anxiety or Irritability: 1=Feels Anxious/Irritable Goose Flesh Skin: 0=Smooth Skin COWS Score: 6 BHS Progress Note (SOAP) Subjective: 54 years old male admitted on 11/11/19 for opiate withdrawal sx management treating with methadone detox regiment feeling ok today ate breakfast resting in bed encourage the patient to attend behavior and psychosocial therapies groups and meetings while in detox Objective: 11/14/19 11:05 Vital Signs Temperature 98.5 F 11/14/19 07:30 Pulse Rate 61 11/14/19 07:30 Respiratory Rate 18 11/14/19 07:30 Blood Pressure 100/58 L 11/14/19 07:30 O2 Sat by Pulse Oximetry (%) Laboratory Last Values WBC 3.1 K/mm3 (4.0-10.0) L 11/12/19 07:25 RBC 3.98 M/mm3 (4.00-5.60) L 11/12/19 07:25 Hgb 11.7 GM/dL (11.7-16.9) 11/12/19 07:25 Hct 35.5 % (35.4-49) 11/12/19 07:25 MCV 89.2 fl (80-96) 11/12/19 07:25 MCH 29.4 pg (25.7-33.7) 11/12/19 07:25 MCHC 32.9 g/dl (32.0-35.9) 11/12/19 07:25 RDW 14.8 % (11.9-15.9) 11/12/19 07:25 Plt Count 147 K/MM3 (134-434) D 11/12/19 07:25 MPV 9.5 fl (7.5-11.1) 11/12/19 07:25 Sodium 141 mmol/L (136-145) 11/12/19 07:25 Potassium 4.0 mmol/L (3.5-5.1) 11/12/19 07:25 Chloride 111 mmol/L (98-107) H 11/12/19 07:25 Carbon Dioxide 24 mmol/L (21-32) 11/12/19 07:25 Anion Gap 6 MMOL/L (8-16) L 11/12/19 07:25 BUN 23.8 mg/dL (7-18) H 11/12/19 07:25 Creatinine 1.0 mg/dL (0.55-1.3) 11/12/19 07:25 Est GFR (CKD-EPI)AfAm 99.15 11/12/19 07:25 Est GFR (CKD-EPI)NonAf 85.55 11/12/19 07:25 Random Glucose 104 mg/dL (74-106) 11/12/19 07:25 Calcium 8.7 mg/dL (8.5-10.1) 11/12/19 07:25 Total Bilirubin 0.2 mg/dL (0.2-1) 11/12/19 07:25 AST 39 U/L (15-37) H 11/12/19 07:25 ALT 34 U/L (13-61) 11/12/19 07:25 Alkaline Phosphatase 200 U/L (45-117) H 11/12/19 07:25 Total Protein 7.1 g/dl (6.4-8.2) 11/12/19 07:25 Albumin 3.0 g/dl (3.4-5.0) L 11/12/19 07:25 Urine Color Yellow 11/13/19 08:00 Urine Appearance Turbid 11/13/19 08:00 Urine pH 5.0 (5.0-8.0) 11/13/19 08:00 Ur Specific [place] 1.021 (1.010-1.035) 11/13/19 08:00 Urine Protein Negative (NEGATIVE) 11/13/19 08:00 Urine Glucose (UA) Negative (NEGATIVE) 11/13/19 08:00 Urine Ketones Negative (NEGATIVE) 11/13/19 08:00 Urine Blood Negative (NEGATIVE) 11/13/19 08:00 Urine Nitrite Negative (NEGATIVE) 11/13/19 08:00 Urine Bilirubin Negative (NEGATIVE) 11/13/19 08:00 Urine Urobilinogen 0.2 mg/dL (0.2-1.0) 11/13/19 08:00 Ur Leukocyte Esterase Negative (NEGATIVE) 11/13/19 08:00 RPR Titer Nonreactive (NONREACTIVE) 11/12/19 07:25 lab noted Assessment: 11/14/19 11:05 opiate withdrawal Plan: methadone regiment
[2019-11-14] MEDS: THIAMINE HCL 100 MG TABLET (FP) PO SCH (23:00)
[2019-11-14] MEDS: MELATONIN 5 MG TABLETS PO PRN (23:01)
[2019-11-15] MEDS ORDERED: METHADONE HCL 10 MG TABLET (FOR DETOX USE ONLY) PO ONE (10:00)
[2019-11-15] MEDS: METHOCARBAMOL 500 MG TABLET PO PRN ×2 (10:28→21:53)
[2019-11-15] MEDS: BACITRACIN 0.9 GM PACKET TP SCH ×2 (10:29→21:52)
[2019-11-15] MEDS: VITAMINS A AND D TOPICAL OINTMENT 60 GM TUBE TP SCH ×2 (10:29→22:14)
[2019-11-15] MEDS: PRENATAL VITAMINS W/ FOLIC ACID TABLET (FP) PO SCH (10:29)
--- NOTE | 2019-11-15 14:14 | PN ---
BHS COWS - Scale Resting Pulse: 0= [place] 80 or Below Sweatin= Chills/Flushing Restless Observation: 0= Sits Still Pupil Size: 0= Normal to Room Light Bone or Joint Aches: 1= Mild Discomfort Runny Nose/ Eye Tearin= None GI Upset > 30mins: 0= None Tremor Observation of Outstretched Hands: 1= Tremor [place], Not Seen Yawning Observation: 0= None Anxiety or Irritability: 1=Feels Anxious/Irritable Goose Flesh Skin: 0=Smooth Skin COWS Score: 4 BHS Progress Note (SOAP) Subjective: 54 years old male admitted on 11/11/19 for opiate withdrawal sx management treating with methadone detox regiment feeling better today mild body aches slept through the night patient may return to his infectious disease primary care provider for aftercare Objective: 11/15/19 14:13 Vital Signs Temperature 98.1 F 11/15/19 12:39 Pulse Rate 66 11/15/19 12:39 Respiratory Rate 18 11/15/19 12:39 Blood Pressure 106/71 11/15/19 12:39 O2 Sat by Pulse Oximetry (%) Laboratory Last Values WBC 3.1 K/mm3 (4.0-10.0) L 11/12/19 07:25 RBC 3.98 M/mm3 (4.00-5.60) L 11/12/19 07:25 Hgb 11.7 GM/dL (11.7-16.9) 11/12/19 07:25 Hct 35.5 % (35.4-49) 11/12/19 07:25 MCV 89.2 fl (80-96) 11/12/19 07:25 MCH 29.4 pg (25.7-33.7) 11/12/19 07:25 MCHC 32.9 g/dl (32.0-35.9) 11/12/19 07:25 RDW 14.8 % (11.9-15.9) 11/12/19 07:25 Plt Count 147 K/MM3 (134-434) D 11/12/19 07:25 MPV 9.5 fl (7.5-11.1) 11/12/19 07:25 Sodium 141 mmol/L (136-145) 11/12/19 07:25 Potassium 4.0 mmol/L (3.5-5.1) 11/12/19 07:25 Chloride 111 mmol/L (98-107) H 11/12/19 07:25 Carbon Dioxide 24 mmol/L (21-32) 11/12/19 07:25 Anion Gap 6 MMOL/L (8-16) L 11/12/19 07:25 BUN 23.8 mg/dL (7-18) H 11/12/19 07:25 Creatinine 1.0 mg/dL (0.55-1.3) 11/12/19 07:25 Est GFR (CKD-EPI)AfAm 99.15 11/12/19 07:25 Est GFR (CKD-EPI)NonAf 85.55 11/12/19 07:25 Random Glucose 104 mg/dL (74-106) 11/12/19 07:25 Calcium 8.7 mg/dL (8.5-10.1) 11/12/19 07:25 Total Bilirubin 0.2 mg/dL (0.2-1) 11/12/19 07:25 AST 39 U/L (15-37) H 11/12/19 07:25 ALT 34 U/L (13-61) 11/12/19 07:25 Alkaline Phosphatase 200 U/L (45-117) H 11/12/19 07:25 Total Protein 7.1 g/dl (6.4-8.2) 11/12/19 07:25 Albumin 3.0 g/dl (3.4-5.0) L 11/12/19 07:25 Urine Color Yellow 11/13/19 08:00 Urine Appearance Turbid 11/13/19 08:00 Urine pH 5.0 (5.0-8.0) 11/13/19 08:00 Ur Specific [place] 1.021 (1.010-1.035) 11/13/19 08:00 Urine Protein Negative (NEGATIVE) 11/13/19 08:00 Urine Glucose (UA) Negative (NEGATIVE) 11/13/19 08:00 Urine Ketones Negative (NEGATIVE) 11/13/19 08:00 Urine Blood Negative (NEGATIVE) 11/13/19 08:00 Urine Nitrite Negative (NEGATIVE) 11/13/19 08:00 Urine Bilirubin Negative (NEGATIVE) 11/13/19 08:00 Urine Urobilinogen 0.2 mg/dL (0.2-1.0) 11/13/19 08:00 Ur Leukocyte Esterase Negative (NEGATIVE) 11/13/19 08:00 RPR Titer Nonreactive (NONREACTIVE) 11/12/19 07:25 lab noted Assessment: 11/15/19 14:13 opiate withdrawal Plan: methadone regiment
[2019-11-15] MEDS: MELATONIN 5 MG TABLETS PO PRN (21:52)
[2019-11-15] MEDS: THIAMINE HCL 100 MG TABLET (FP) PO SCH (21:53)
[2019-11-16] MEDS ORDERED: METHADONE HCL 5 MG TABLET (FOR DETOX USE ONLY) PO ONE (06:00)
--- NOTE | 2019-11-16 09:19 | DS ---
[facility] Detox Discharge Summary Admission Date: 11/11/19 Discharge Date: 11/16/19 - History Present History: Opioid Dependence Additional Comments: 54 years old male admitted on 11/11/19 for opiate withdrawal sx management treated with methadone detox regiment Mr Luna has completed the methadone regiment and tolerated well alert oriented x 3 cardiac s1s2 regular rate rhythm respiratory clear lungs bilaterally on auscultation extremities full range of motion Pertinent Past History: time for discharge 42 minutes - Physical Exam Results Vital Signs: Vital Signs Temperature 98.7 F 11/16/19 06:11 Pulse Rate 57 L 11/16/19 06:11 Respiratory Rate 18 11/16/19 06:30 Blood Pressure 110/68 11/16/19 06:11 O2 Sat by Pulse Oximetry (%) Pertinent Admission Physical Exam Findings: opiate withdrawal Vital Signs Temperature 98.4 F 11/16/19 09:02 Pulse Rate 70 11/16/19 09:02 Respiratory Rate 18 11/16/19 09:02 Blood Pressure 101/59 L 11/16/19 09:02 O2 Sat by Pulse Oximetry (%) Laboratory Last Values WBC 3.1 K/mm3 (4.0-10.0) L 11/12/19 07:25 RBC 3.98 M/mm3 (4.00-5.60) L 11/12/19 07:25 Hgb 11.7 GM/dL (11.7-16.9) 11/12/19 07:25 Hct 35.5 % (35.4-49) 11/12/19 07:25 MCV 89.2 fl (80-96) 11/12/19 07:25 MCH 29.4 pg (25.7-33.7) 11/12/19 07:25 MCHC 32.9 g/dl (32.0-35.9) 11/12/19 07:25 RDW 14.8 % (11.9-15.9) 11/12/19 07:25 Plt Count 147 K/MM3 (134-434) D 11/12/19 07:25 MPV 9.5 fl (7.5-11.1) 11/12/19 07:25 Sodium 141 mmol/L (136-145) 11/12/19 07:25 Potassium 4.0 mmol/L (3.5-5.1) 11/12/19 07:25 Chloride 111 mmol/L (98-107) H 11/12/19 07:25 Carbon Dioxide 24 mmol/L (21-32) 11/12/19 07:25 Anion Gap 6 MMOL/L (8-16) L 11/12/19 07:25 BUN 23.8 mg/dL (7-18) H 11/12/19 07:25 Creatinine 1.0 mg/dL (0.55-1.3) 11/12/19 07:25 Est GFR (CKD-EPI)AfAm 99.15 11/12/19 07:25 Est GFR (CKD-EPI)NonAf 85.55 11/12/19 07:25 Random Glucose 104 mg/dL (74-106) 11/12/19 07:25 Calcium 8.7 mg/dL (8.5-10.1) 11/12/19 07:25 Total Bilirubin 0.2 mg/dL (0.2-1) 11/12/19 07:25 AST 39 U/L (15-37) H 11/12/19 07:25 ALT 34 U/L (13-61) 11/12/19 07:25 Alkaline Phosphatase 200 U/L (45-117) H 11/12/19 07:25 Total Protein 7.1 g/dl (6.4-8.2) 11/12/19 07:25 Albumin 3.0 g/dl (3.4-5.0) L 11/12/19 07:25 Urine Color Yellow 11/13/19 08:00 Urine Appearance Turbid 11/13/19 08:00 Urine pH 5.0 (5.0-8.0) 11/13/19 08:00 Ur Specific [place] 1.021 (1.010-1.035) 11/13/19 08:00 Urine Protein Negative (NEGATIVE) 11/13/19 08:00 Urine Glucose (UA) Negative (NEGATIVE) 11/13/19 08:00 Urine Ketones Negative (NEGATIVE) 11/13/19 08:00 Urine Blood Negative (NEGATIVE) 11/13/19 08:00 Urine Nitrite Negative (NEGATIVE) 11/13/19 08:00 Urine Bilirubin Negative (NEGATIVE) 11/13/19 08:00 Urine Urobilinogen 0.2 mg/dL (0.2-1.0) 11/13/19 08:00 Ur Leukocyte Esterase Negative (NEGATIVE) 11/13/19 08:00 RPR Titer Nonreactive (NONREACTIVE) 11/12/19 07:25 lab noted - Treatment Hospital Course: Detox Protocol Followed, Detoxed Safely, Responded well, Discharged Condition Good, Rehab Referral Accepted Patient has Accepted a Rehab Referral to: cat - Medication Discharge Medications: Ambulatory Orders Efavirenz/Emtricitab/Tenofovir [Atripla Tablet -] 1 tab PO DAILY 08/26/18 - Diagnosis (1) HIV (human immunodeficiency virus infection) Current Visit: Yes Status: Chronic Qualifiers: HIV symptom status: asymptomatic Qualified Code(s): Z21 - Asymptomatic human immunodeficiency virus [HIV] infection status (2) Hep C w/o coma, chronic Current Visit: Yes Status: Chronic (3) Opioid dependence with withdrawal Current Visit: Yes Status: Acute (4) Abrasion Current Visit: Yes Status: Acute - AMA Did Patient Leave Against Medical Advice: No COWS (PN) - Opiate Withdrawal Resting Pulse: 0= [place] 80 or Below Sweatin= No chills or Flushing Restless Observation: 0= Sits Still Pupil Size: 0= Normal to Room Light Bone or Joint Aches: 0= None Runny Nose/ Eye Tearin= None GI Upset > 30mins: 0= None Tremor Observation of Outstretched Hands: 1= Tremor [place], Not Seen Yawning Observation: 0= None Anxiety or Irritability: 1=Feels Anxious/Irritable Goose Flesh Skin: 0=Smooth Skin COWS Score: 2
[2019-11-16] MEDS: PRENATAL VITAMINS W/ FOLIC ACID TABLET (FP) PO SCH (10:43)
[2019-11-16] MEDS: VITAMINS A AND D TOPICAL OINTMENT 60 GM TUBE TP SCH (10:43)
[2019-11-16] MEDS: BACITRACIN 0.9 GM PACKET TP SCH (10:46)
[2019-11-16 13:27] VITALS: BP 108/63; PULSE 63; TEMP 97.9
== END 2019-11-16 15:50 | disposition other institution (70) | DRG 773 ==
LOC: YASAS 19:03 → Y3N 22:34
PROVIDERS: ADMIT Allergy & Immunology; ATTEND Allergy & Immunology
PROC: HZ2ZZZZ Detoxification Services for Substance Abuse Treatment (ICD-10-PCS; principal; 2019-11-11)
DX: F11.23 Opioid dependence with withdrawal (principal); F14.20 Cocaine dependence, uncomplicated; Z21 Asymptomatic human immunodeficiency virus [HIV] infection status; B18.2 Chronic viral hepatitis C; R94.31 Abnormal electrocardiogram [ECG] [EKG]; R01.1 Cardiac murmur, unspecified; R60.0 Localized edema; Z56.0 Unemployment, unspecified
CPT/HCPCS: 36415; 80053; 81003; 85027; 86593; 93005; 93010

== ENCOUNTER 2019-11-16 15:57 | Inpatient (IN) | payer OTHER ==
--- NOTE | 2019-11-16 12:29 | HP ---
[facility] Rehab Assess/Revision - Admission History Admitted to Rehab from: [facility] Date of Admission to Rehab: 11/16/19 - Findings Detox History & Physical reviewed: Yes Concur with findings: Yes Comments/Additional Findings: transferred from detox to rehab admission as per protocol Inpatient Rehab Admission - Rehab Decision to Admit Inpatient rehab admission?: Yes - Initial Determination Are CD services needed?: Yes Free of communicable disease: Yes Not in need of hospitalization: Yes - Rehab Admission Criteria Previous failed treatment: Yes Poor recovery environment: Yes Comorbidities: Yes Lacks judgement: Yes Patient is meeting Inpatient Rehab admission criteria:: Yes
[~2019-11-16 15:57] MED LIST: ACETAMINOPHEN 325 MG TABLET (FP) PO PRN; IBUPROFEN 400 MG TABLET (FP) PO PRN; LOPERAMIDE HCL 2 MG CAPSULE PO PRN; MAG HYDROX/AL HYDROX/SIMETH 30 ML UNIT-DOSE CUP PO PRN; MAGNESIUM CITRATE 300 ML BOTTLE PO PRN; MAGNESIUM HYDROX 2400MG/30ML ORAL SUSPENSION 30 ML CUP PO PRN; MENTHOL/PHENOL 1 EACH UD MM PRN; P-EPHED 60MG/TRIPROLIDI 2.5MG TABLET PO PRN; guaiFENesin 200 MG/10 ML 10 ML UNIT-DOSE CUPS PO PRN
[2019-11-16] MEDS: THIAMINE HCL 100 MG TABLET (FP) PO SCH (21:25)
[2019-11-16] MEDS: BACITRACIN 0.9 GM PACKET TP SCH (21:26)
[2019-11-16] MEDS: MELATONIN 5 MG TABLETS PO PRN (21:26)
[2019-11-16] MEDS: VITAMINS A AND D TOPICAL OINTMENT 60 GM TUBE TP SCH (22:16)
[2019-11-17] MEDS: PRENATAL VITAMINS W/ FOLIC ACID TABLET (FP) PO SCH (10:07)
[2019-11-17] MEDS: VITAMINS A AND D TOPICAL OINTMENT 60 GM TUBE TP SCH ×2 (10:07→21:30)
[2019-11-17] MEDS: BACITRACIN 0.9 GM PACKET TP SCH ×2 (10:07→21:29)
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
[2019-11-17] MEDS ORDERED: COLLOIDAL OATMEAL 1 BAR EACH TP PRN (11:39)
[2019-11-17] MEDS ORDERED: PNEUMOC 13-VAL CONJ-DIP CRM/PF 0.5 ML DISP.SYRIN IM ONE (12:00)
[2019-11-17] MEDS: THIAMINE HCL 100 MG TABLET (FP) PO SCH (21:29)
[2019-11-17] MEDS: MELATONIN 5 MG TABLETS PO PRN (21:30)
[2019-11-18 07:06] VITALS: BP 115/79; PULSE 60; TEMP 98.1
[2019-11-18] MEDS ORDERED: ELVITEG/COB/EMTRI/TENOF (GENVOYA) TABLET (NF) PO SCH (10:00)
[2019-11-18] MEDS: BACITRACIN 0.9 GM PACKET TP SCH (10:15)
[2019-11-18] MEDS: VITAMINS A AND D TOPICAL OINTMENT 60 GM TUBE TP SCH (10:15)
[2019-11-18] MEDS: PRENATAL VITAMINS W/ FOLIC ACID TABLET (FP) PO SCH (10:15)
[2019-11-18] MEDS ORDERED: FLU VACCINE QUAD 60 MCG/0.5 ML (MDV 19-20) IM ONE (12:00)
--- NOTE | 2019-11-18 14:45 | DS ---
[facility] Rehab Discharge Summary - [facility] Rehab Discharge Summary Admission Date: 11/16/19 Discharge Date: 11/18/19 - History Present History: Cocaine dependence, Opioid dependence Additional Comments: Pt is a 54 y/o male with a hx of DOM admitted to rehab after completion of detox but requesting to leave today for personal reasons-'"I have to take care of some personal business". Pt met with his counselor and referral was given to follow up with CD [place]care [place] [facility] [place]. Pt reports he has a primary care provider, Dr. Burnette on Pertinent Past History: HIV+ - Discharge Physical Exam Vital Signs: Vital Signs Temperature 98.1 F 11/18/19 07:00 Pulse Rate 60 11/18/19 07:00 Respiratory Rate 16 11/18/19 07:00 Blood Pressure 115/79 11/18/19 07:00 O2 Sat by Pulse Oximetry (%) Alert o x 3,denies s/h/i nad oob ambulating with steady gait cardiac;s1 s2,rrr lungs:cta,zane, good airflow abdomen:=bs,soft,nt,nd extremities/skin:no edema;clean healing facial abrasions,healing scabs on left LE. Pertinent Admission Physical Exam Findings: Pt is stable and status unchanged since admission to rehab. Skin lesions on face, left lE and a few on hands in different stages of healing. pt reports hx of drug(cocaine+) related skin eruptions with itching and skin picking. - Treatment Discharge Condition: Discharge condition good Hospital Course: Safety maintained while in rehab CD aftercare referral accepted - Medication Discharge Medications: Ambulatory Orders Elviteg/Cob/Emtri/Tenof Alafen [Genvoya Tablet] 1 each PO DAILY 11/16/19 - Medication-Assisted Treatment (MAT) Medication-Assisted Treatment (MAT): Yes - Discharge Instructions Diet, activity, other medical instructions: Diet:Regular Activity: oob ad eugenio Other medical instructions:follow up with CD aftercare recommendation as scheduled at [facility]. follow up with your primary care provider Dr. Rosendo Burnette at the [address] [place] [address] on 11/19/19 for medical management of your comorbid condition as discussed. - Diagnosis (1) Opioid dependence Current Visit: Yes Status: Chronic Qualifiers: Substance use status: uncomplicated Qualified Code(s): F11.20 - Opioid dependence, uncomplicated (2) Cocaine dependence, uncomplicated Current Visit: Yes Status: Chronic (3) HIV (human immunodeficiency virus infection) Current Visit: Yes Status: Chronic Qualifiers: HIV symptom status: asymptomatic Qualified Code(s): Z21 - Asymptomatic human immunodeficiency virus [HIV] infection status (4) Hep C w/o coma, chronic Current Visit: Yes Status: Chronic (5) Abrasion Current Visit: Yes Status: Acute (6) Excoriation (skin-picking) disorder Current Visit: Yes Status: Chronic - Follow-up Referral Minutes to complete discharge: 30 - AMA Did Patient Leave Against Medical Advice: No Additional Comments: Pt declined to stay further inpatient treatment and wants to voluntarily follow up with treatment outpatient and take care of his personal business. pt states he will follow up with his PCP tomorrow. Pt last picked up his Genvoya on 11/09/19 as verified from his [employer] and will continue care with primary care upon discharge. Pt has no need for courtesy Rx today.
== END 2019-11-18 15:15 | disposition left against medical advice (07) | DRG 770 ==
LOC: YASAS 15:57 → Y5N 16:01
PROVIDERS: ADMIT Allergy & Immunology; ATTEND Allergy & Immunology
PROC: HZ42ZZZ Group Counseling for Substance Abuse Treatment, Cognitive-Behavioral (ICD-10-PCS; principal; 2019-11-16)
DX: F11.20 Opioid dependence, uncomplicated (principal); F14.20 Cocaine dependence, uncomplicated; F42.4 Excoriation (skin-picking) disorder; Z21 Asymptomatic human immunodeficiency virus [HIV] infection status; B18.2 Chronic viral hepatitis C; R94.31 Abnormal electrocardiogram [ECG] [EKG]; R01.1 Cardiac murmur, unspecified; R60.0 Localized edema; Z56.0 Unemployment, unspecified
CPT/HCPCS: 90670; G0008; G0009; Q2036

== ENCOUNTER 2020-12-11 12:57 | Inpatient (IN) | payer OTHER ==
[2020-12-11 15:11] VITALS: BMI 21.0
[2020-12-11] MEDS ORDERED: MAGNESIUM CITRATE 300 ML BOTTLE PO PRN (16:26)
[2020-12-11] MEDS ORDERED: MAG HYDROX/AL HYDROX/SIMETH 30 ML UNIT-DOSE CUP PO PRN (16:26)
[2020-12-11] MEDS ORDERED: ACETAMINOPHEN 325 MG TABLET (FP) PO PRN ×2 (16:26)
[2020-12-11] MEDS ORDERED: BISMUTH SUBSALICYLATE 524 MG/30 ML UD PO PRN (16:26)
[2020-12-11] MEDS ORDERED: NICOTINE POLACRILEX 2 MG GUM BUC PRN (16:26)
[2020-12-11] MEDS ORDERED: ONDANSETRON *ODT* 4 MG TABLET SL PRN (16:26)
[2020-12-11] MEDS ORDERED: MAGNESIUM HYDROX 2400MG/30ML ORAL SUSPENSION 30 ML CUP PO PRN (16:26)
[2020-12-11] MEDS ORDERED: METHOCARBAMOL 500 MG TABLET PO PRN (16:26)
[2020-12-11] MEDS ORDERED: IBUPROFEN 400 MG TABLET (FP) PO PRN (16:26)
[2020-12-11] MEDS ORDERED: cloNIDine HCL 0.1 MG TABLET PO PRN (16:28)
[2020-12-11] MEDS ORDERED: METHADONE HCL 10 MG TABLET (FOR DETOX USE ONLY) PO ONE (17:00)
[2020-12-11] MEDS: hydrOXYzine PAMOATE 25 MG CAPSULE (FP) PO SCH ×2 (18:20→22:30)
[2020-12-11] MEDS: MELATONIN 5 MG TABLETS PO SCH (22:30)
[2020-12-11] MEDS: THIAMINE HCL 100 MG TABLET (FP) PO SCH (22:30)
[2020-12-12] MEDS: hydrOXYzine PAMOATE 25 MG CAPSULE (FP) PO SCH ×2 (05:23→10:11)
[2020-12-12] MEDS ORDERED: METHADONE HCL 5 MG TABLET (FOR DETOX USE ONLY) ONE (09:22)
[2020-12-12] MEDS ORDERED: METHADONE HCL 10 MG TABLET (FOR DETOX USE ONLY) ONE (09:22)
[2020-12-12] MEDS ORDERED: METHADONE (DETOX) 20 MG, METHADONE (DETOX) 5 MG PO ONE (10:00)
[2020-12-12] MEDS: PRENATAL VITAMINS W/ FOLIC ACID TABLET (FP) PO SCH (10:11)
[2020-12-12 11:58] LABS: HEMATOCRIT 37.1 % (35.4-49); HEMOGLOBIN 12.2 GM/dL (11.7-16.9); MCH 29.7 pg (25.7-33.7); MCHC 32.9 g/dl (32.0-35.9); MEAN CELL VOLUME 90.1 fl (80-96); MEAN PLT VOLUME 9.3 fl (7.5-11.1); PLATELET COUNT 221 K/MM3 (134-434); RBC 4.11 M/mm3 (4.00-5.60); RDW 13.8 % (11.9-15.9); WHITE BLOOD COUNT 4.6 K/mm3 (4.0-10.0)
[2020-12-12 12:24] LABS: POTASSIUM 3.8 mmol/L (3.5-5.1)
[2020-12-12 12:32] LABS: ALBUMIN 3.2 g/dl (3.4-5.0); BLOOD UREA NITROGEN 10.2 mg/dL (7-18); CALCIUM 9.5 mg/dL (8.5-10.1)
[2020-12-12 12:37] LABS: BILIRUBIN,TOTAL 0.6 mg/dL (0.2-1)
[2020-12-12] MEDS: MELATONIN 5 MG TABLETS PO SCH (22:03)
[2020-12-12] MEDS: THIAMINE HCL 100 MG TABLET (FP) PO SCH (22:04)
[2020-12-13] MEDS: hydrOXYzine PAMOATE 25 MG CAPSULE (FP) PO PRN ×2 (07:19→22:40)
[2020-12-13] MEDS: PRENATAL VITAMINS W/ FOLIC ACID TABLET (FP) PO SCH (09:12)
[2020-12-13] MEDS: MENTHOL/PHENOL 1 EACH UD MM PRN ×3 (09:15→22:41)
[2020-12-13] MEDS ORDERED: METHADONE HCL 10 MG TABLET (FOR DETOX USE ONLY) PO ONE (10:00)
[2020-12-13] MEDS: ELVITEG/COB/EMTRI/TENOF (GENVOYA) TABLET (NF) PO SCH (12:47)
[2020-12-13 14:33] LABS: PH,URINE 7.5 (5.0-8.0); URINE APPEARANCE CLEAR; URINE BILIRUBIN NEGATIVE (NEGATIVE); URINE COLOR YELLOW; URINE GLUCOSE (UA) NEGATIVE (NEGATIVE); URINE KETONE TRACE (NEGATIVE); URINE LEUK ESTERASE NEGATIVE (NEGATIVE); URINE NITRITE NEGATIVE (NEGATIVE); URINE PROTEIN NEGATIVE (NEGATIVE)
[2020-12-13] MEDS: THIAMINE HCL 100 MG TABLET (FP) PO SCH (22:40)
[2020-12-13] MEDS: MELATONIN 5 MG TABLETS PO SCH (22:40)
[2020-12-14] MEDS ORDERED: METHADONE HCL 10 MG TABLET (FOR DETOX USE ONLY) ONE (08:09)
[2020-12-14] MEDS ORDERED: METHADONE HCL 5 MG TABLET (FOR DETOX USE ONLY) ONE (08:10)
[2020-12-14] MEDS ORDERED: METHADONE (DETOX) 10 MG, METHADONE (DETOX) 5 MG PO ONE (10:00)
[2020-12-14] MEDS: PRENATAL VITAMINS W/ FOLIC ACID TABLET (FP) PO SCH (10:24)
[2020-12-14] MEDS: ELVITEG/COB/EMTRI/TENOF (GENVOYA) TABLET (NF) PO SCH (10:24)
[2020-12-14] MEDS: MENTHOL/PHENOL 1 EACH UD MM PRN (10:26)
[2020-12-14] MEDS: THIAMINE HCL 100 MG TABLET (FP) PO SCH (22:33)
[2020-12-14] MEDS: MELATONIN 5 MG TABLETS PO SCH (22:33)
[2020-12-14] MEDS: hydrOXYzine PAMOATE 25 MG CAPSULE (FP) PO PRN (22:34)
[2020-12-15] MEDS: PRENATAL VITAMINS W/ FOLIC ACID TABLET (FP) PO SCH (09:49)
[2020-12-15] MEDS: ELVITEG/COB/EMTRI/TENOF (GENVOYA) TABLET (NF) PO SCH (09:49)
[2020-12-15] MEDS: MENTHOL/PHENOL 1 EACH UD MM PRN (09:51)
[2020-12-15] MEDS ORDERED: METHADONE HCL 10 MG TABLET (FOR DETOX USE ONLY) PO ONE (10:00)
[2020-12-15] MEDS: MELATONIN 5 MG TABLETS PO SCH (22:51)
[2020-12-15] MEDS: THIAMINE HCL 100 MG TABLET (FP) PO SCH (22:51)
[2020-12-16] MEDS ORDERED: METHADONE HCL 5 MG TABLET (FOR DETOX USE ONLY) PO ONE (06:00)
[2020-12-16] MEDS: hydrOXYzine PAMOATE 25 MG CAPSULE (FP) PO PRN (07:14)
[2020-12-16] MEDS: MENTHOL/PHENOL 1 EACH UD MM PRN (07:17)
[2020-12-16] MEDS: ELVITEG/COB/EMTRI/TENOF (GENVOYA) TABLET (NF) PO SCH (07:18)
[2020-12-16 09:58] VITALS: BP 118/68; PULSE 73; TEMP 96.1
[2020-12-16] MEDS: PRENATAL VITAMINS W/ FOLIC ACID TABLET (FP) PO SCH (10:11)
== END 2020-12-16 10:42 | disposition home or self-care (01) | DRG 773 ==
LOC: YASAS 12:57 → Y3N 15:38
PROVIDERS: ADMIT Allergy & Immunology; ATTEND Allergy & Immunology
PROC: HZ2ZZZZ Detoxification Services for Substance Abuse Treatment (ICD-10-PCS; principal; 2020-12-11)
DX: F11.23 Opioid dependence with withdrawal (principal); F14.20 Cocaine dependence, uncomplicated; Z21 Asymptomatic human immunodeficiency virus [HIV] infection status; B18.2 Chronic viral hepatitis C; R73.9 Hyperglycemia, unspecified; R01.1 Cardiac murmur, unspecified; Z59.0 Homelessness
CPT/HCPCS: 36415; 80053; 81003; 82947; 85027; 86780; C9803; U0003

== ENCOUNTER 2021-10-28 15:42 | Inpatient (IN) | payer OTHER ==
[2021-10-28 16:09] VITALS: BMI 22.3
[2021-10-28] MEDS ORDERED: ACETAMINOPHEN 325 MG TABLET (FP) PO PRN (19:30)
[2021-10-28] MEDS ORDERED: MAG HYDROX/AL HYDROX/SIMETH 30 ML UNIT-DOSE CUP PO PRN (19:30)
[2021-10-28] MEDS ORDERED: ONDANSETRON *ODT* 4 MG TABLET SL PRN (19:30)
[2021-10-28] MEDS ORDERED: MENTHOL/PHENOL 1 EACH UD MM PRN (19:30)
[2021-10-28] MEDS ORDERED: IBUPROFEN 400 MG TABLET (FP) PO PRN (19:30)
[2021-10-28] MEDS ORDERED: BISMUTH SUBSALICYLATE 524 MG/30 ML PO PRN (19:30)
[2021-10-28] MEDS ORDERED: MAGNESIUM CITRATE 300 ML BOTTLE PO PRN (19:30)
[2021-10-28] MEDS ORDERED: MELATONIN 5 MG TABLETS PO PRN (19:30)
[2021-10-28] MEDS ORDERED: cloNIDine HCL 0.1 MG TABLET PO PRN (19:30)
[2021-10-28] MEDS ORDERED: MAGNESIUM HYDROX 2400MG/30ML ORAL SUSPENSION 30 ML CUP PO PRN (19:30)
[2021-10-28] MEDS ORDERED: NICOTINE POLACRILEX 2 MG GUM BUC PRN (19:30)
[2021-10-28] MEDS ORDERED: AMMONIUM LACTATE 12% LOTION 225 GM BOTTLE TP PRN (20:14)
[2021-10-28] MEDS ORDERED: methaDONE HCL 10 MG TABLET (FOR DETOX USE ONLY) PO ONE (21:00)
[2021-10-28] MEDS: THIAMINE HCL 100 MG TABLET (FP) PO SCH (22:49)
[2021-10-29] MEDS ORDERED: methaDONE HCL 10 MG TABLET (FOR DETOX USE ONLY) ONE (09:34)
[2021-10-29] MEDS: METHOCARBAMOL 500 MG TABLET PO PRN ×2 (10:15→22:35)
[2021-10-29] MEDS: PRENATAL VITAMINS W/ FOLIC ACID TABLET (FP) PO SCH (10:15)
[2021-10-29] MEDS: hydrOXYzine PAMOATE 25 MG CAPSULE (FP) PO PRN ×2 (10:15→22:32)
[2021-10-29] MEDS: ACETAMINOPHEN 325 MG TABLET (FP) PO PRN ×2 (10:15→22:34)
[2021-10-29] MEDS: ELVITEG/COB/EMTRI/TENOF (GENVOYA) TABLET (NF) PO SCH (10:16)
[2021-10-29 10:25] LABS: HEMATOCRIT 33.7 % (35.4-49); HEMOGLOBIN 10.6 GM/dL (11.7-16.9); MCH 28.1 pg (25.7-33.7); MCHC 31.5 g/dl (32.0-35.9); MEAN CELL VOLUME 89.1 fl (80-96); MEAN PLT VOLUME 9.2 fl (7.5-11.1); PLATELET COUNT 210 10^3/uL (134-434); RBC 3.79 M/mm3 (4.00-5.60); WHITE BLOOD COUNT 3.5 K/mm3 (4.0-10.0)
[2021-10-29 10:29] LABS: BLOOD UREA NITROGEN 19.4 mg/dL (7-18); CALCIUM 9.5 mg/dL (8.5-10.1)
[2021-10-29 10:31] LABS: CREATININE 1.1 mg/dL (0.55-1.3)
[2021-10-29 10:33] LABS: TOT PROT 7.4 g/dl (6.4-8.2)
[2021-10-29 10:34] LABS: BILIRUBIN,TOTAL 0.1 mg/dL (0.2-1)
[2021-10-29] MEDS: THIAMINE HCL 100 MG TABLET (FP) PO SCH (22:32)
[2021-10-30] MEDS: ELVITEG/COB/EMTRI/TENOF (GENVOYA) TABLET (NF) PO SCH (08:14)
[2021-10-30] MEDS ORDERED: methaDONE HCL 10 MG TABLET (FOR DETOX USE ONLY) PO ONE (10:00)
[2021-10-30] MEDS: PRENATAL VITAMINS W/ FOLIC ACID TABLET (FP) PO SCH (10:09)
[2021-10-30] MEDS: THIAMINE HCL 100 MG TABLET (FP) PO SCH (23:08)
[2021-10-31] MEDS: ELVITEG/COB/EMTRI/TENOF (GENVOYA) TABLET (NF) PO SCH (07:45)
[2021-10-31] MEDS ORDERED: methaDONE HCL 10 MG TABLET (FOR DETOX USE ONLY) ONE (10:24)
[2021-10-31] MEDS: METHOCARBAMOL 500 MG TABLET PO PRN (10:48)
[2021-10-31] MEDS: PRENATAL VITAMINS W/ FOLIC ACID TABLET (FP) PO SCH (10:50)
[2021-10-31] MEDS: hydrOXYzine PAMOATE 25 MG CAPSULE (FP) PO PRN (10:51)
[2021-10-31] MEDS: THIAMINE HCL 100 MG TABLET (FP) PO SCH (23:01)
[2021-11-01] MEDS: ELVITEG/COB/EMTRI/TENOF (GENVOYA) TABLET (NF) PO SCH (07:59)
[2021-11-01] MEDS ORDERED: methaDONE HCL 10 MG TABLET (FOR DETOX USE ONLY) PO ONE (10:00)
[2021-11-01] MEDS: hydrOXYzine PAMOATE 25 MG CAPSULE (FP) PO PRN (10:08)
[2021-11-01] MEDS: METHOCARBAMOL 500 MG TABLET PO PRN (10:08)
[2021-11-01] MEDS: PRENATAL VITAMINS W/ FOLIC ACID TABLET (FP) PO SCH (10:08)
[2021-11-01] MEDS: THIAMINE HCL 100 MG TABLET (FP) PO SCH (22:52)
[2021-11-02] MEDS: ELVITEG/COB/EMTRI/TENOF (GENVOYA) TABLET (NF) PO SCH (07:18)
[2021-11-02 09:31] VITALS: BP 103/58; PULSE 68; TEMP 97.7
[2021-11-02] MEDS: PRENATAL VITAMINS W/ FOLIC ACID TABLET (FP) PO SCH (10:04)
== END 2021-11-02 10:09 | disposition home or self-care (01) | DRG 773 ==
LOC: YASAS 15:42 → Y6N 19:15
PROVIDERS: ADMIT Allergy & Immunology; ATTEND Allergy & Immunology
PROC: HZ2ZZZZ Detoxification Services for Substance Abuse Treatment (ICD-10-PCS; principal; 2021-10-28)
DX: F11.23 Opioid dependence with withdrawal (principal); F14.20 Cocaine dependence, uncomplicated; F19.24 Other psychoactive substance dependence with psychoactive substance-induced mood disorder; Z21 Asymptomatic human immunodeficiency virus [HIV] infection status; D64.9 Anemia, unspecified; D72.819 Decreased white blood cell count, unspecified; B18.2 Chronic viral hepatitis C; K42.9 Umbilical hernia without obstruction or gangrene
CPT/HCPCS: 36415; 80053; 82962; 85027; 86780; C9803; J0735; U0003; U0005

== ENCOUNTER 2021-12-21 13:24 | Inpatient (IN) | payer OTHER ==
[2021-12-21] MEDS ORDERED: MENTHOL/PHENOL 1 EACH UD MM PRN (13:33)
[2021-12-21] MEDS ORDERED: methaDONE HCL 10 MG TABLET (FOR DETOX USE ONLY) PO ONE ×2 (13:33→20:15)
[2021-12-21] MEDS ORDERED: MAG HYDROX/AL HYDROX/SIMETH 30 ML UNIT-DOSE CUP PO PRN (13:33)
[2021-12-21] MEDS ORDERED: cloNIDine HCL 0.1 MG TABLET PO PRN (13:33)
[2021-12-21] MEDS ORDERED: LOPERAMIDE HCL 2 MG CAPSULE PO PRN (13:33)
[2021-12-21] MEDS ORDERED: ONDANSETRON *ODT* 4 MG TABLET SL PRN (13:33)
[2021-12-21] MEDS ORDERED: IBUPROFEN 400 MG TABLET (FP) PO PRN (13:33)
[2021-12-21] MEDS ORDERED: MAGNESIUM CITRATE 300 ML BOTTLE PO PRN (13:33)
[2021-12-21] MEDS ORDERED: METHOCARBAMOL 500 MG TABLET PO PRN (13:33)
[2021-12-21] MEDS ORDERED: ACETAMINOPHEN 325 MG TABLET (FP) PO PRN ×2 (13:33)
[2021-12-21] MEDS ORDERED: MAGNESIUM HYDROX 2400MG/30ML ORAL SUSPENSION 30 ML CUP PO PRN (13:33)
[2021-12-21] MEDS ORDERED: BISMUTH SUBSALICYLATE 262 MG/15 ML BTL PO PRN (13:33)
[2021-12-21] MEDS ORDERED: hydrOXYzine PAMOATE 25 MG CAPSULE (FP) PO SCH (14:00)
[2021-12-21 15:28] VITALS: BMI 21.0
[2021-12-21] MEDS ORDERED: P-EPHED 60MG/TRIPROLIDI 2.5MG TABLET PO PRN (17:52)
[2021-12-21] MEDS ORDERED: guaiFENesin 200 MG/10 ML 10 ML UNIT-DOSE CUPS PO PRN (17:53)
[2021-12-21] MEDS: PRENATAL VITAMINS W/ FOLIC ACID TABLET (FP) PO SCH (20:23)
[2021-12-21] MEDS: MELATONIN 5 MG TABLETS PO SCH (23:49)
[2021-12-21] MEDS: THIAMINE HCL 100 MG TABLET (FP) PO SCH (23:49)
[2021-12-21] MEDS: BACITRACIN 0.9 GM PACKET TP SCH (23:49)
[2021-12-22] MEDS ORDERED: methaDONE HCL 10 MG TABLET (FOR DETOX USE ONLY) ONE (09:16)
[2021-12-22] MEDS: BACITRACIN 0.9 GM PACKET TP SCH ×2 (10:14→23:19)
[2021-12-22] MEDS: PRENATAL VITAMINS W/ FOLIC ACID TABLET (FP) PO SCH (10:15)
[2021-12-22 12:33] LABS: CALCIUM 9.2 mg/dL (8.5-10.1)
[2021-12-22 12:34] LABS: ALBUMIN 2.9 g/dl (3.4-5.0); BLOOD UREA NITROGEN 11.8 mg/dL (7-18)
[2021-12-22 12:38] LABS: BILIRUBIN,TOTAL 0.7 mg/dL (0.2-1); TOT PROT 7.7 g/dl (6.4-8.2)
[2021-12-22 12:39] LABS: HEMATOCRIT 34.7 % (35.4-49); HEMOGLOBIN 11.6 GM/dL (11.7-16.9); MCH 29.3 pg (25.7-33.7); MCHC 33.4 g/dl (32.0-35.9); MEAN CELL VOLUME 87.7 fl (80-96); MEAN PLT VOLUME 8.6 fl (7.5-11.1); PLATELET COUNT 283 10^3/uL (134-434); RBC 3.96 M/mm3 (4.00-5.60); RDW 13.4 % (11.9-15.9); WHITE BLOOD COUNT 3.2 K/mm3 (4.0-10.0)
[2021-12-22] MEDS: THIAMINE HCL 100 MG TABLET (FP) PO SCH (23:19)
[2021-12-22] MEDS: MELATONIN 5 MG TABLETS PO SCH (23:19)
[2021-12-23] MEDS ORDERED: methaDONE HCL 10 MG TABLET (FOR DETOX USE ONLY) PO ONE (10:00)
[2021-12-23 10:06] LABS: SARS-CoV-2 NAA Not Detected (Not Detected)
[2021-12-23] MEDS: PRENATAL VITAMINS W/ FOLIC ACID TABLET (FP) PO SCH (10:35)
[2021-12-23] MEDS: BACITRACIN 0.9 GM PACKET TP SCH ×2 (10:37→22:56)
[2021-12-23] MEDS: THIAMINE HCL 100 MG TABLET (FP) PO SCH (22:57)
[2021-12-23] MEDS: MELATONIN 5 MG TABLETS PO SCH (22:57)
[2021-12-24] MEDS ORDERED: methaDONE HCL 10 MG TABLET (FOR DETOX USE ONLY) ONE (09:01)
[2021-12-24] MEDS ORDERED: diazePAM 5 MG TABLET PO PRN (09:43)
[2021-12-24] MEDS ORDERED: cloNIDine HCL 0.1 MG TABLET PO PRN (09:43)
[2021-12-24] MEDS: BACITRACIN 0.9 GM PACKET TP SCH ×2 (10:49→22:37)
[2021-12-24] MEDS: PRENATAL VITAMINS W/ FOLIC ACID TABLET (FP) PO SCH (10:52)
[2021-12-24] MEDS: ELVITEG/COB/EMTRI/TENOF (GENVOYA) TABLET (NF) PO SCH (11:19)
[2021-12-24] MEDS: MELATONIN 5 MG TABLETS PO SCH (22:37)
[2021-12-24] MEDS: THIAMINE HCL 100 MG TABLET (FP) PO SCH (22:37)
[2021-12-25] MEDS ORDERED: methaDONE HCL 10 MG TABLET (FOR DETOX USE ONLY) PO ONE (10:00)
[2021-12-25] MEDS: ELVITEG/COB/EMTRI/TENOF (GENVOYA) TABLET (NF) PO SCH (10:27)
[2021-12-25] MEDS: PRENATAL VITAMINS W/ FOLIC ACID TABLET (FP) PO SCH (10:36)
[2021-12-25] MEDS: BACITRACIN 0.9 GM PACKET TP SCH ×2 (10:37→22:28)
[2021-12-25] MEDS: MELATONIN 5 MG TABLETS PO SCH (22:28)
[2021-12-25] MEDS: THIAMINE HCL 100 MG TABLET (FP) PO SCH (22:28)
[2021-12-26 08:54] VITALS: BP 106/61; PULSE 67; TEMP 98.2
[2021-12-26] MEDS: PRENATAL VITAMINS W/ FOLIC ACID TABLET (FP) PO SCH (09:45)
[2021-12-26] MEDS: ELVITEG/COB/EMTRI/TENOF (GENVOYA) TABLET (NF) PO SCH (09:45)
[2021-12-26] MEDS: BACITRACIN 0.9 GM PACKET TP SCH (09:45)
== END 2021-12-26 10:20 | disposition home or self-care (01) | DRG 773 ==
LOC: YASAS 13:24 → Y3N 18:48
PROVIDERS: ADMIT Allergy & Immunology; ATTEND Allergy & Immunology
PROC: HZ2ZZZZ Detoxification Services for Substance Abuse Treatment (ICD-10-PCS; principal; 2021-12-21)
DX: F11.23 Opioid dependence with withdrawal (principal); F42.4 Excoriation (skin-picking) disorder; R77.0 Abnormality of albumin; D64.9 Anemia, unspecified; Z21 Asymptomatic human immunodeficiency virus [HIV] infection status; R73.9 Hyperglycemia, unspecified; R01.1 Cardiac murmur, unspecified; Z56.0 Unemployment, unspecified; Z59.00 Homelessness unspecified
CPT/HCPCS: 36415; 80053; 82947; 83036; 85027; 86780; 93005; 93010; C9803-CS; U0003; U0005

== ENCOUNTER 2022-06-11 15:01 | Inpatient (IN) | payer OTHER ==
[2022-06-11 17:57] VITALS: BMI 19.5
[2022-06-11] MEDS ORDERED: BENZOCAINE/MENTHOL (CHLORASEPTIC ) LOZENGE MM PRN (19:55)
[2022-06-11] MEDS ORDERED: NALOXONE HCL (KLOXXADO) 8 MG SPRAY NS PRN (19:55)
[2022-06-11] MEDS ORDERED: BISMUTH SUBSALICYLATE 524 MG/30 ML PO PRN (19:55)
[2022-06-11] MEDS ORDERED: MAGNESIUM CITRATE 300 ML BOTTLE PO PRN (19:55)
[2022-06-11] MEDS ORDERED: MAGNESIUM HYDROX 2400MG/30ML ORAL SUSPENSION 30 ML CUP PO PRN (19:55)
[2022-06-11] MEDS ORDERED: DICYCLOMINE HCL 10 MG CAPSULE PO PRN (19:55)
[2022-06-11] MEDS ORDERED: P-EPHED 60MG/TRIPROLIDI 2.5MG TABLET PO PRN (19:55)
[2022-06-11] MEDS ORDERED: MAG HYDROX/AL HYDROX/SIMETH 30 ML UNIT-DOSE CUP PO PRN (19:55)
[2022-06-11] MEDS ORDERED: ACETAMINOPHEN 325 MG TABLET (FP) PO PRN ×2 (19:55)
[2022-06-11] MEDS ORDERED: LOPERAMIDE HCL 2 MG CAPSULE PO PRN (19:55)
[2022-06-11] MEDS ORDERED: NALOXONE HCL 0.4 MG/ML VIAL IM PRN (19:55)
[2022-06-11] MEDS ORDERED: guaiFENesin 200 MG/10 ML 10 ML UNIT-DOSE CUPS PO PRN (19:55)
[2022-06-11] MEDS ORDERED: IBUPROFEN 400 MG TABLET (FP) PO PRN (19:55)
[2022-06-11] MEDS: THIAMINE HCL 100 MG TABLET (FP) PO SCH (23:38)
[2022-06-11] MEDS: MELATONIN 5 MG TABLETS PO SCH (23:38)
[2022-06-12] MEDS ORDERED: methaDONE HCL 10 MG TABLET (FOR DETOX USE ONLY) PO ONE ×2 (00:04→12:15)
[2022-06-12] MEDS ORDERED: cloNIDine HCL 0.1 MG TABLET PO PRN (00:04)
[2022-06-12] MEDS: METHOCARBAMOL 500 MG TABLET PO PRN ×2 (00:29→12:11)
[2022-06-12] MEDS: MELATONIN 5 MG TABLETS PO SCH ×2 (00:30→22:22)
[2022-06-12] MEDS: PRENATAL VITAMINS W/ FOLIC ACID TABLET (FP) PO SCH (10:50)
[2022-06-12 12:29] LABS: HEMATOCRIT 35.5 % (35.4-49); HEMOGLOBIN 11.4 GM/dL (11.7-16.9); MCH 28.7 pg (25.7-33.7); MCHC 32.2 g/dl (32.0-35.9); MEAN CELL VOLUME 89.1 fl (80-96); MEAN PLT VOLUME 9.4 fl (7.5-11.1); PLATELET COUNT 215 10^3/uL (134-434); RBC 3.98 M/mm3 (4.00-5.60); RDW 14.3 % (11.9-15.9); WHITE BLOOD COUNT 3.2 K/mm3 (4.0-10.0)
[2022-06-12 13:02] LABS: ALBUMIN 2.8 g/dl (3.4-5.0); BLOOD UREA NITROGEN 20.5 mg/dL (7-18); CALCIUM 9.1 mg/dL (8.5-10.1)
[2022-06-12 13:05] LABS: CREATININE 0.9 mg/dL (0.55-1.3)
[2022-06-12 13:06] LABS: BILIRUBIN,TOTAL 0.3 mg/dL (0.2-1); TOT PROT 7.5 g/dl (6.4-8.2)
[2022-06-12] MEDS: THIAMINE HCL 100 MG TABLET (FP) PO SCH (22:22)
[2022-06-13] MEDS: PRENATAL VITAMINS W/ FOLIC ACID TABLET (FP) PO SCH (10:15)
[2022-06-13] MEDS: METHOCARBAMOL 500 MG TABLET PO PRN (10:15)
[2022-06-13] MEDS: ELVITEG/COB/EMTRI/TENOF (GENVOYA) TABLET (NF) PO SCH (11:58)
[2022-06-13] MEDS: THIAMINE HCL 100 MG TABLET (FP) PO SCH (22:47)
[2022-06-13] MEDS: MELATONIN 5 MG TABLETS PO SCH (22:47)
[2022-06-14] MEDS ORDERED: methaDONE HCL 10 MG TABLET (FOR DETOX USE ONLY) PO ONE (10:00)
[2022-06-14] MEDS: ELVITEG/COB/EMTRI/TENOF (GENVOYA) TABLET (NF) PO SCH (10:30)
[2022-06-14] MEDS: METHOCARBAMOL 500 MG TABLET PO PRN ×2 (10:30→22:19)
[2022-06-14] MEDS: PRENATAL VITAMINS W/ FOLIC ACID TABLET (FP) PO SCH (10:30)
[2022-06-14] MEDS: IBUPROFEN 600 MG TABLET (FP) PO PRN ×2 (10:31→22:17)
[2022-06-14] MEDS: MELATONIN 5 MG TABLETS PO SCH (22:15)
[2022-06-14] MEDS: THIAMINE HCL 100 MG TABLET (FP) PO SCH (22:15)
[2022-06-15] MEDS: ELVITEG/COB/EMTRI/TENOF (GENVOYA) TABLET (NF) PO SCH (10:27)
[2022-06-15] MEDS: METHOCARBAMOL 500 MG TABLET PO PRN (10:28)
[2022-06-15] MEDS: PRENATAL VITAMINS W/ FOLIC ACID TABLET (FP) PO SCH (10:28)
[2022-06-15] MEDS: IBUPROFEN 600 MG TABLET (FP) PO PRN (10:29)
[2022-06-15] MEDS: MELATONIN 5 MG TABLETS PO SCH (22:43)
[2022-06-15] MEDS: THIAMINE HCL 100 MG TABLET (FP) PO SCH (22:43)
[2022-06-16] MEDS ORDERED: methaDONE HCL 10 MG TABLET (FOR DETOX USE ONLY) PO ONE (10:00)
[2022-06-16] MEDS: PRENATAL VITAMINS W/ FOLIC ACID TABLET (FP) PO SCH (10:04)
[2022-06-16] MEDS: ELVITEG/COB/EMTRI/TENOF (GENVOYA) TABLET (NF) PO SCH (10:04)
[2022-06-16] MEDS: METHOCARBAMOL 500 MG TABLET PO PRN (10:05)
[2022-06-16] MEDS: THIAMINE HCL 100 MG TABLET (FP) PO SCH (22:35)
[2022-06-16] MEDS: MELATONIN 5 MG TABLETS PO SCH (22:35)
[2022-06-17 09:19] VITALS: BP 97/61; PULSE 65; RESP 18; TEMP 98.2
== END 2022-06-17 08:20 | disposition other institution (70) | DRG 773 ==
LOC: YASAS 15:01 → Y3N 20:46
PROVIDERS: ADMIT Allergy & Immunology; ATTEND Surgery
PROC: HZ2ZZZZ Detoxification Services for Substance Abuse Treatment (ICD-10-PCS; principal; 2022-06-11)
DX: F11.23 Opioid dependence with withdrawal (principal); F14.20 Cocaine dependence, uncomplicated; F42.4 Excoriation (skin-picking) disorder; Z21 Asymptomatic human immunodeficiency virus [HIV] infection status; L30.9 Dermatitis, unspecified; Z59.00 Homelessness unspecified; Z56.0 Unemployment, unspecified
CPT/HCPCS: 36415; 80053; 85027; 86780; C9803-CS; U0003; U0005

== ENCOUNTER 2022-06-17 11:20 | Inpatient (IN) | payer OTHER ==
[2022-06-17] MEDS ORDERED: MAGNESIUM HYDROX 2400MG/30ML ORAL SUSPENSION 30 ML CUP PO PRN (12:13)
[2022-06-17] MEDS ORDERED: NICOTINE 10 MG CARTRIDGE (INHALER) IH PRN (12:13)
[2022-06-17] MEDS ORDERED: BENZOCAINE/MENTHOL (CHLORASEPTIC ) LOZENGE MM PRN (12:13)
[2022-06-17] MEDS ORDERED: P-EPHED 60MG/TRIPROLIDI 2.5MG TABLET PO PRN (12:13)
[2022-06-17] MEDS ORDERED: MAGNESIUM CITRATE 300 ML BOTTLE PO PRN (12:13)
[2022-06-17] MEDS ORDERED: LOPERAMIDE HCL 2 MG CAPSULE PO PRN (12:13)
[2022-06-17] MEDS ORDERED: guaiFENesin 200 MG/10 ML 10 ML UNIT-DOSE CUPS PO PRN (12:13)
[2022-06-17] MEDS ORDERED: MAG HYDROX/AL HYDROX/SIMETH 30 ML UNIT-DOSE CUP PO PRN (12:13)
[2022-06-17] MEDS: hydrOXYzine PAMOATE 25 MG CAPSULE (FP) PO SCH ×3 (14:02→21:44)
[2022-06-17] MEDS: NICOTINE 7 MG/24 HOURS TOPICAL PATCH TD SCH (14:06)
[2022-06-17] MEDS: CLOTRIMAZOLE 1% CREAM TP SCH (21:44)
[2022-06-17] MEDS: MELATONIN 5 MG TABLETS PO SCH (21:44)
[2022-06-17] MEDS: THIAMINE HCL 100 MG TABLET (FP) PO SCH (23:20)
[2022-06-18] MEDS: ACETAMINOPHEN 325 MG TABLET (FP) PO PRN ×2 (01:11→22:30)
[2022-06-18] MEDS: hydrOXYzine PAMOATE 25 MG CAPSULE (FP) PO SCH ×3 (06:27→13:40)
[2022-06-18] MEDS: ELVITEG/COB/EMTRI/TENOF (GENVOYA) TABLET (NF) PO SCH (07:04)
[2022-06-18] MEDS: NICOTINE 7 MG/24 HOURS TOPICAL PATCH TD SCH (10:04)
[2022-06-18] MEDS: PRENATAL VITAMINS W/ FOLIC ACID TABLET (FP) PO SCH (10:04)
[2022-06-18] MEDS: IBUPROFEN 400 MG TABLET (FP) PO PRN (10:05)
[2022-06-18] MEDS: CLOTRIMAZOLE 1% CREAM TP SCH ×2 (10:05→22:06)
[2022-06-18] MEDS: THIAMINE HCL 100 MG TABLET (FP) PO SCH (22:06)
[2022-06-18] MEDS: MELATONIN 5 MG TABLETS PO SCH (22:06)
[2022-06-18] MEDS: hydrOXYzine PAMOATE 25 MG CAPSULE (FP) PO PRN (22:43)
[2022-06-19] MEDS: ACETAMINOPHEN 325 MG TABLET (FP) PO PRN ×2 (06:29→21:20)
[2022-06-19] MEDS: hydrOXYzine PAMOATE 25 MG CAPSULE (FP) PO PRN ×2 (06:29→21:19)
[2022-06-19] MEDS: ELVITEG/COB/EMTRI/TENOF (GENVOYA) TABLET (NF) PO SCH (07:15)
[2022-06-19] MEDS: NICOTINE 7 MG/24 HOURS TOPICAL PATCH TD SCH (09:55)
[2022-06-19] MEDS: CLOTRIMAZOLE 1% CREAM TP SCH ×2 (09:55→21:21)
[2022-06-19] MEDS: PRENATAL VITAMINS W/ FOLIC ACID TABLET (FP) PO SCH (09:55)
[2022-06-19] MEDS: IBUPROFEN 400 MG TABLET (FP) PO PRN ×2 (09:56→18:51)
[2022-06-19] MEDS: THIAMINE HCL 100 MG TABLET (FP) PO SCH (21:19)
[2022-06-19] MEDS: MELATONIN 5 MG TABLETS PO SCH (21:19)
[2022-06-20 06:42] VITALS: BP 121/83; PULSE 66; RESP 20; TEMP 98.2
[2022-06-20] MEDS: ELVITEG/COB/EMTRI/TENOF (GENVOYA) TABLET (NF) PO SCH (07:00)
[2022-06-20] MEDS: NICOTINE 7 MG/24 HOURS TOPICAL PATCH TD SCH (09:48)
[2022-06-20] MEDS: PRENATAL VITAMINS W/ FOLIC ACID TABLET (FP) PO SCH (09:48)
[2022-06-20] MEDS: CLOTRIMAZOLE 1% CREAM TP SCH (09:49)
== END 2022-06-20 11:32 | disposition left against medical advice (07) | DRG 770 ==
LOC: YASAS 11:20 → Y3E 11:21
PROVIDERS: ADMIT Allergy & Immunology; ATTEND Psychiatry & Neurology Pain Medicine
PROC: HZ42ZZZ Group Counseling for Substance Abuse Treatment, Cognitive-Behavioral (ICD-10-PCS; principal; 2022-06-17)
DX: F11.20 Opioid dependence, uncomplicated (principal); F14.20 Cocaine dependence, uncomplicated; Z59.00 Homelessness unspecified
CPT/HCPCS: 82962; 83036

== ENCOUNTER 2023-07-07 20:25 | Inpatient (IN) | payer OTHER ==
[2023-07-07 20:43] VITALS: BMI 21.4
[2023-07-07] MEDS ORDERED: NALOXONE HCL (KLOXXADO) 8 MG SPRAY NS PRN (21:03)
[2023-07-07] MEDS ORDERED: LOPERAMIDE HCL 2 MG CAPSULE PO PRN (21:03)
[2023-07-07] MEDS ORDERED: BISMUTH SUBSALICYLATE 524 MG/30 ML PO PRN (21:03)
[2023-07-07] MEDS ORDERED: IBUPROFEN 600 MG TABLET (FP) PO PRN (21:03)
[2023-07-07] MEDS ORDERED: MAG HYDROX/AL HYDROX/SIMETH 30 ML UNIT-DOSE CUP PO PRN (21:03)
[2023-07-07] MEDS ORDERED: ACETAMINOPHEN 325 MG TABLET (FP) PO PRN (21:03)
[2023-07-07] MEDS ORDERED: MAGNESIUM HYDROX 2400MG/30ML ORAL SUSPENSION 30 ML CUP PO PRN (21:03)
[2023-07-07] MEDS ORDERED: POLYETHYLENE GLYCOL (HEALTHYLAX) 3350 17 GM PACKET PO PRN (21:03)
[2023-07-07] MEDS ORDERED: guaiFENesin 600 MG TABLET.ER (FP) PO PRN (21:03)
[2023-07-07] MEDS ORDERED: IBUPROFEN 400 MG TABLET (FP) PO PRN (21:03)
[2023-07-07] MEDS ORDERED: BENZONATATE 200 MG CAPSULE PO PRN (21:03)
[2023-07-07] MEDS ORDERED: P-EPHED 60MG/TRIPROLIDI 2.5MG TABLET PO PRN (21:03)
[2023-07-07] MEDS ORDERED: DICYCLOMINE HCL 10 MG CAPSULE PO PRN (21:03)
[2023-07-07] MEDS ORDERED: ONDANSETRON *ODT* 4 MG TABLET SL PRN (21:03)
[2023-07-07] MEDS ORDERED: NALOXONE HCL 0.4 MG/ML VIAL IM PRN (21:03)
[2023-07-07] MEDS ORDERED: BENZOCAINE/MENTHOL (CHLORASEPTIC ) LOZENGE MM PRN (21:03)
[2023-07-07] MEDS ORDERED: methaDONE HCL 10 MG TABLET (FOR DETOX USE ONLY) ONE (21:29)
[2023-07-07] MEDS: cloNIDine HCL 0.1 MG TABLET PO PRN (21:48)
[2023-07-07] MEDS: THIAMINE HCL 100 MG TABLET (FP) PO SCH (21:48)
[2023-07-07] MEDS: MELATONIN 5 MG TABLETS PO SCH (21:48)
[2023-07-07] MEDS ORDERED: methaDONE HCL 10 MG TABLET (FOR DETOX USE ONLY) PO ONE (22:00)
[2023-07-07] MEDS: BACITRACIN 0.9 GM PACKET TP SCH (22:24)
[2023-07-08] MEDS: VITAMINS A AND D TOPICAL OINTMENT 60 GM TUBE TP SCH ×4 (00:03→19:43)
[2023-07-08 09:35] LABS: HEMATOCRIT 32.1 % (35.4-49); HEMOGLOBIN 10.6 GM/dL (11.7-16.9); MCH 29.9 pg (25.7-33.7); MCHC 33.1 g/dl (32.0-35.9); MEAN CELL VOLUME 90.5 fl (80-96); MEAN PLT VOLUME 8.6 fl (7.5-11.1); PLATELET COUNT 228 10^3/uL (134-434); RBC 3.55 M/mm3 (4.00-5.60); RDW 13.8 % (11.9-15.9); WHITE BLOOD COUNT 3.8 K/mm3 (4.0-10.0)
[2023-07-08] MEDS: PRENATAL VITAMINS W/ FOLIC ACID TABLET (FP) PO SCH (09:35)
[2023-07-08] MEDS: METHOCARBAMOL 500 MG TABLET PO PRN ×2 (09:35→22:20)
[2023-07-08] MEDS: hydrOXYzine PAMOATE 25 MG CAPSULE (FP) PO PRN (09:35)
[2023-07-08 09:36] LABS: POTASSIUM 3.9 mmol/L (3.5-5.1)
[2023-07-08] MEDS: BACITRACIN 0.9 GM PACKET TP SCH ×2 (09:37→22:20)
[2023-07-08 10:03] LABS: BLOOD UREA NITROGEN 17.8 mg/dL (7-18); CALCIUM 8.9 mg/dL (8.5-10.1)
[2023-07-08 10:04] LABS: ALBUMIN 2.8 g/dl (3.4-5.0)
[2023-07-08 10:06] LABS: BILIRUBIN,TOTAL 0.5 mg/dL (0.2-1)
[2023-07-08 10:07] LABS: TOT PROT 6.7 g/dl (6.4-8.2)
[2023-07-08] MEDS: THIAMINE HCL 100 MG TABLET (FP) PO SCH (22:20)
[2023-07-08] MEDS: cloNIDine HCL 0.1 MG TABLET PO PRN (22:20)
[2023-07-08] MEDS: MELATONIN 5 MG TABLETS PO SCH (22:20)
[2023-07-09] MEDS: VITAMINS A AND D TOPICAL OINTMENT 60 GM TUBE TP SCH ×5 (00:16→23:21)
[2023-07-09] MEDS: ELVITEG/COB/EMTRI/TENOF (GENVOYA) TABLET PO SCH (08:21)
[2023-07-09] MEDS: cloNIDine HCL 0.1 MG TABLET PO PRN (09:31)
[2023-07-09] MEDS: BACITRACIN 0.9 GM PACKET TP SCH ×2 (09:31→23:20)
[2023-07-09] MEDS: METHOCARBAMOL 500 MG TABLET PO PRN (09:31)
[2023-07-09] MEDS: PRENATAL VITAMINS W/ FOLIC ACID TABLET (FP) PO SCH (09:31)
[2023-07-09] MEDS: hydrOXYzine PAMOATE 25 MG CAPSULE (FP) PO PRN (09:31)
[2023-07-09] MEDS ORDERED: methaDONE HCL 10 MG TABLET (FOR DETOX USE ONLY) PO ONE (10:00)
[2023-07-09] MEDS: THIAMINE HCL 100 MG TABLET (FP) PO SCH (23:21)
[2023-07-09] MEDS: MELATONIN 5 MG TABLETS PO SCH (23:21)
[2023-07-10] MEDS: VITAMINS A AND D TOPICAL OINTMENT 60 GM TUBE TP SCH ×4 (06:03→23:00)
[2023-07-10] MEDS: ELVITEG/COB/EMTRI/TENOF (GENVOYA) TABLET PO SCH (07:18)
[2023-07-10] MEDS: BACITRACIN 0.9 GM PACKET TP SCH ×2 (10:02→22:24)
[2023-07-10] MEDS: PRENATAL VITAMINS W/ FOLIC ACID TABLET (FP) PO SCH (10:02)
[2023-07-10] MEDS: MELATONIN 5 MG TABLETS PO SCH (22:24)
[2023-07-10] MEDS: THIAMINE HCL 100 MG TABLET (FP) PO SCH (22:24)
[2023-07-11] MEDS: VITAMINS A AND D TOPICAL OINTMENT 60 GM TUBE TP SCH ×3 (05:32→21:36)
[2023-07-11] MEDS: ELVITEG/COB/EMTRI/TENOF (GENVOYA) TABLET PO SCH (07:02)
[2023-07-11] MEDS ORDERED: methaDONE HCL 10 MG TABLET (FOR DETOX USE ONLY) PO ONE (10:00)
[2023-07-11] MEDS: hydrOXYzine PAMOATE 25 MG CAPSULE (FP) PO PRN (10:47)
[2023-07-11] MEDS: BACITRACIN 0.9 GM PACKET TP SCH ×2 (10:47→23:38)
[2023-07-11] MEDS: METHOCARBAMOL 500 MG TABLET PO PRN (10:47)
[2023-07-11] MEDS: PRENATAL VITAMINS W/ FOLIC ACID TABLET (FP) PO SCH (10:47)
[2023-07-11 20:46] VITALS: RESP 16
[2023-07-11] MEDS: THIAMINE HCL 100 MG TABLET (FP) PO SCH (23:38)
[2023-07-11] MEDS: MELATONIN 5 MG TABLETS PO SCH (23:38)
[2023-07-12] MEDS: VITAMINS A AND D TOPICAL OINTMENT 60 GM TUBE TP SCH ×3 (01:18→11:19)
[2023-07-12 06:47] VITALS: BP 127/66; PULSE 63; TEMP 97.8
[2023-07-12] MEDS: ELVITEG/COB/EMTRI/TENOF (GENVOYA) TABLET PO SCH (08:15)
[2023-07-12] MEDS: PRENATAL VITAMINS W/ FOLIC ACID TABLET (FP) PO SCH (09:45)
[2023-07-12] MEDS: BACITRACIN 0.9 GM PACKET TP SCH (09:45)
== END 2023-07-12 09:25 | disposition home or self-care (01) | DRG 773 ==
LOC: YASAS 20:25 → Y6N 21:11
PROVIDERS: ADMIT Allergy & Immunology; ATTEND Surgery
PROC: HZ2ZZZZ Detoxification Services for Substance Abuse Treatment (ICD-10-PCS; principal; 2023-07-07)
DX: F11.23 Opioid dependence with withdrawal (principal); F14.20 Cocaine dependence, uncomplicated; F42.4 Excoriation (skin-picking) disorder; Z21 Asymptomatic human immunodeficiency virus [HIV] infection status; Z86.19 Personal history of other infectious and parasitic diseases
CPT/HCPCS: 36415; 80053; 83036; 85027; 86780; 87635

== ENCOUNTER 2023-09-18 12:31 | Inpatient (IN) | payer OTHER ==
[2023-09-18 13:10] VITALS: BMI 22.6
[2023-09-18] MEDS ORDERED: MAG HYDROX/AL HYDROX/SIMETH 30 ML UNIT-DOSE CUP PO PRN (15:55)
[2023-09-18] MEDS ORDERED: NALOXONE HCL 0.4 MG/ML VIAL IM PRN (15:55)
[2023-09-18] MEDS ORDERED: IBUPROFEN 600 MG TABLET (FP) PO PRN (15:55)
[2023-09-18] MEDS ORDERED: P-EPHED 60MG/TRIPROLIDI 2.5MG TABLET PO PRN (15:55)
[2023-09-18] MEDS ORDERED: MAGNESIUM HYDROX 2400MG/30ML ORAL SUSPENSION 30 ML CUP PO PRN (15:55)
[2023-09-18] MEDS ORDERED: COLLOIDAL OATMEAL 1 BAR EACH TP PRN (15:55)
[2023-09-18] MEDS ORDERED: NALOXONE HCL (KLOXXADO) 8 MG SPRAY NS PRN (15:55)
[2023-09-18] MEDS ORDERED: IBUPROFEN 400 MG TABLET (FP) PO PRN (15:55)
[2023-09-18] MEDS ORDERED: POLYETHYLENE GLYCOL (HEALTHYLAX) 3350 17 GM PACKET PO PRN (15:55)
[2023-09-18] MEDS ORDERED: LOPERAMIDE HCL 2 MG CAPSULE PO PRN (15:55)
[2023-09-18] MEDS ORDERED: BENZONATATE 200 MG CAPSULE PO PRN (15:55)
[2023-09-18] MEDS: MELATONIN 5 MG TABLETS PO SCH (21:36)
[2023-09-18] MEDS: THIAMINE HCL 100 MG TABLET (FP) PO SCH (21:36)
[2023-09-18] MEDS: ACETAMINOPHEN 325 MG TABLET (FP) PO PRN (21:38)
[2023-09-18] MEDS: hydrOXYzine PAMOATE 25 MG CAPSULE (FP) PO PRN (21:38)
[2023-09-18] MEDS: guaiFENesin 200 MG/10 ML 10 ML UNIT-DOSE CUPS PO PRN (21:56)
[2023-09-19] MEDS ORDERED: methaDONE HCL 40 MG DISPERSABLE TABLET PO SCH (06:00)
[2023-09-19] MEDS: PRENATAL VITAMINS W/ FOLIC ACID TABLET (FP) PO SCH (10:06)
[2023-09-19] MEDS: guaiFENesin 200 MG/10 ML 10 ML UNIT-DOSE CUPS PO PRN (10:08)
[2023-09-19] MEDS ORDERED: TUBERCULIN PPD 5 TU/0.1ML VIAL ID ONE (10:08)
[2023-09-19] MEDS: ELVITEG/COB/EMTRI/TENOF (GENVOYA) TABLET PO SCH (12:03)
[2023-09-19 13:27] LABS: HEMATOCRIT 33.6 % (35.4-49); MCH 29.5 pg (25.7-33.7); MCHC 32.8 g/dl (32.0-35.9); MEAN CELL VOLUME 90.1 fl (80-96); MEAN PLT VOLUME 9.4 fl (7.5-11.1); PLATELET COUNT 226 10^3/uL (134-434); RBC 3.73 M/mm3 (4.00-5.60); RDW 14.3 % (11.9-15.9); WHITE BLOOD COUNT 2.9 K/mm3 (4.0-10.0)
[2023-09-19 13:30] LABS: POTASSIUM 4.6 mmol/L (3.5-5.1)
[2023-09-19 13:33] LABS: PH,URINE 5.5 (5.0-8.0); URINE APPEARANCE CLEAR; URINE BILIRUBIN NEGATIVE (NEGATIVE); URINE COLOR YELLOW; URINE GLUCOSE (UA) NEGATIVE (NEGATIVE); URINE KETONE NEGATIVE (NEGATIVE); URINE LEUK ESTERASE NEGATIVE (NEGATIVE); URINE NITRITE NEGATIVE (NEGATIVE); URINE PROTEIN NEGATIVE (NEGATIVE); URINE UROBILINOGEN 0.2 mg/dL (0.2-1.0)
[2023-09-19 13:34] LABS: CALCIUM 9.5 mg/dL (8.5-10.1)
[2023-09-19 13:35] LABS: ALBUMIN 3.3 g/dl (3.4-5.0); BLOOD UREA NITROGEN 29.2 mg/dL (7-18)
[2023-09-19 13:38] LABS: CREATININE 1.4 mg/dL (0.55-1.3)
[2023-09-19 13:40] LABS: BILIRUBIN,TOTAL 0.1 mg/dL (0.2-1); TOT PROT 7.8 g/dl (6.4-8.2)
[2023-09-19] MEDS: THIAMINE HCL 100 MG TABLET (FP) PO SCH (23:15)
[2023-09-19] MEDS: MELATONIN 5 MG TABLETS PO SCH (23:15)
[2023-09-20] MEDS: BENZOCAINE/MENTHOL (CHLORASEPTIC ) LOZENGE MM PRN (06:18)
[2023-09-20] MEDS: ELVITEG/COB/EMTRI/TENOF (GENVOYA) TABLET PO SCH (07:35)
[2023-09-20] MEDS: PRENATAL VITAMINS W/ FOLIC ACID TABLET (FP) PO SCH (10:32)
[2023-09-20] MEDS: THIAMINE HCL 100 MG TABLET (FP) PO SCH (21:59)
[2023-09-20] MEDS: MELATONIN 5 MG TABLETS PO SCH (21:59)
[2023-09-20] MEDS: hydrOXYzine PAMOATE 25 MG CAPSULE (FP) PO PRN (21:59)
[2023-09-20] MEDS: ACETAMINOPHEN 325 MG TABLET (FP) PO PRN (22:00)
[2023-09-21] MEDS: ELVITEG/COB/EMTRI/TENOF (GENVOYA) TABLET PO SCH (07:04)
[2023-09-21] MEDS: PRENATAL VITAMINS W/ FOLIC ACID TABLET (FP) PO SCH (10:44)
[2023-09-21] MEDS: THIAMINE HCL 100 MG TABLET (FP) PO SCH (21:54)
[2023-09-21] MEDS: MELATONIN 5 MG TABLETS PO SCH (21:54)
[2023-09-21] MEDS: BENZOCAINE/MENTHOL (CHLORASEPTIC ) LOZENGE MM PRN (21:55)
[2023-09-21] MEDS: hydrOXYzine PAMOATE 25 MG CAPSULE (FP) PO PRN (21:55)
[2023-09-22] MEDS: ELVITEG/COB/EMTRI/TENOF (GENVOYA) TABLET PO SCH (07:03)
[2023-09-22] MEDS: PRENATAL VITAMINS W/ FOLIC ACID TABLET (FP) PO SCH (10:26)
[2023-09-22] MEDS: THIAMINE HCL 100 MG TABLET (FP) PO SCH (21:40)
[2023-09-22] MEDS: MELATONIN 5 MG TABLETS PO SCH (21:40)
[2023-09-22] MEDS: BENZOCAINE/MENTHOL (CHLORASEPTIC ) LOZENGE MM PRN (21:43)
[2023-09-22] MEDS: hydrOXYzine PAMOATE 25 MG CAPSULE (FP) PO PRN (21:44)
[2023-09-23] MEDS: ELVITEG/COB/EMTRI/TENOF (GENVOYA) TABLET PO SCH (07:00)
[2023-09-23] MEDS: PRENATAL VITAMINS W/ FOLIC ACID TABLET (FP) PO SCH (10:21)
[2023-09-23] MEDS: BENZOCAINE/MENTHOL (CHLORASEPTIC ) LOZENGE MM PRN (10:22)
[2023-09-23] MEDS: MELATONIN 5 MG TABLETS PO SCH (22:35)
[2023-09-23] MEDS: THIAMINE HCL 100 MG TABLET (FP) PO SCH (22:35)
[2023-09-24] MEDS: ELVITEG/COB/EMTRI/TENOF (GENVOYA) TABLET PO SCH (09:55)
[2023-09-24] MEDS: PRENATAL VITAMINS W/ FOLIC ACID TABLET (FP) PO SCH (09:55)
[2023-09-24] MEDS: MELATONIN 5 MG TABLETS PO SCH (21:28)
[2023-09-24] MEDS: THIAMINE HCL 100 MG TABLET (FP) PO SCH (21:28)
[2023-09-24] MEDS: hydrOXYzine PAMOATE 25 MG CAPSULE (FP) PO PRN (21:29)
[2023-09-24] MEDS: BENZOCAINE/MENTHOL (CHLORASEPTIC ) LOZENGE MM PRN (21:30)
[2023-09-25] MEDS: ELVITEG/COB/EMTRI/TENOF (GENVOYA) TABLET PO SCH (07:23)
[2023-09-25] MEDS: BENZOCAINE/MENTHOL (CHLORASEPTIC ) LOZENGE MM PRN ×3 (10:06→21:34)
[2023-09-25] MEDS: PRENATAL VITAMINS W/ FOLIC ACID TABLET (FP) PO SCH (10:06)
[2023-09-25] MEDS: THIAMINE HCL 100 MG TABLET (FP) PO SCH (21:34)
[2023-09-25] MEDS: hydrOXYzine PAMOATE 25 MG CAPSULE (FP) PO PRN (21:34)
[2023-09-25] MEDS: MELATONIN 5 MG TABLETS PO SCH (21:34)
[2023-09-26] MEDS: BENZOCAINE/MENTHOL (CHLORASEPTIC ) LOZENGE MM PRN (05:56)
[2023-09-26] MEDS: ELVITEG/COB/EMTRI/TENOF (GENVOYA) TABLET PO SCH (07:07)
[2023-09-26] MEDS: PRENATAL VITAMINS W/ FOLIC ACID TABLET (FP) PO SCH (09:53)
[2023-09-26] MEDS: MELATONIN 5 MG TABLETS PO SCH (21:20)
[2023-09-26] MEDS: hydrOXYzine PAMOATE 25 MG CAPSULE (FP) PO PRN (21:20)
[2023-09-26] MEDS: THIAMINE HCL 100 MG TABLET (FP) PO SCH (21:20)
[2023-09-27] MEDS: ELVITEG/COB/EMTRI/TENOF (GENVOYA) TABLET PO SCH (07:04)
[2023-09-27] MEDS: PRENATAL VITAMINS W/ FOLIC ACID TABLET (FP) PO SCH (10:02)
[2023-09-27] MEDS: hydrOXYzine PAMOATE 25 MG CAPSULE (FP) PO PRN (21:20)
[2023-09-27] MEDS: THIAMINE HCL 100 MG TABLET (FP) PO SCH (21:20)
[2023-09-27] MEDS: MELATONIN 5 MG TABLETS PO SCH (21:20)
[2023-09-28] MEDS: BENZOCAINE/MENTHOL (CHLORASEPTIC ) LOZENGE MM PRN (07:17)
[2023-09-28] MEDS: ELVITEG/COB/EMTRI/TENOF (GENVOYA) TABLET PO SCH (07:17)
[2023-09-28] MEDS: PRENATAL VITAMINS W/ FOLIC ACID TABLET (FP) PO SCH (10:10)
[2023-09-28] MEDS: MELATONIN 5 MG TABLETS PO SCH (21:24)
[2023-09-28] MEDS: hydrOXYzine PAMOATE 25 MG CAPSULE (FP) PO PRN (21:24)
[2023-09-28] MEDS: THIAMINE HCL 100 MG TABLET (FP) PO SCH (21:24)
[2023-09-29] MEDS: ELVITEG/COB/EMTRI/TENOF (GENVOYA) TABLET PO SCH (07:04)
[2023-09-29] MEDS: PRENATAL VITAMINS W/ FOLIC ACID TABLET (FP) PO SCH (09:53)
[2023-09-29] MEDS: THIAMINE HCL 100 MG TABLET (FP) PO SCH (21:51)
[2023-09-29] MEDS: MELATONIN 5 MG TABLETS PO SCH (21:51)
[2023-09-30] MEDS: ELVITEG/COB/EMTRI/TENOF (GENVOYA) TABLET PO SCH (07:19)
[2023-09-30] MEDS: PRENATAL VITAMINS W/ FOLIC ACID TABLET (FP) PO SCH (10:13)
[2023-09-30] MEDS: ACETAMINOPHEN 325 MG TABLET (FP) PO PRN (18:54)
[2023-09-30] MEDS: THIAMINE HCL 100 MG TABLET (FP) PO SCH (23:08)
[2023-09-30] MEDS: MELATONIN 5 MG TABLETS PO SCH (23:08)
[2023-10-01] MEDS: ELVITEG/COB/EMTRI/TENOF (GENVOYA) TABLET PO SCH (07:02)
[2023-10-01] MEDS: PRENATAL VITAMINS W/ FOLIC ACID TABLET (FP) PO SCH (10:04)
[2023-10-01] MEDS: BENZOCAINE/MENTHOL (CHLORASEPTIC ) LOZENGE MM PRN (19:03)
[2023-10-01] MEDS: MELATONIN 5 MG TABLETS PO SCH (23:05)
[2023-10-01] MEDS: THIAMINE HCL 100 MG TABLET (FP) PO SCH (23:05)
[2023-10-02] MEDS: ELVITEG/COB/EMTRI/TENOF (GENVOYA) TABLET PO SCH (07:59)
[2023-10-02] MEDS: PRENATAL VITAMINS W/ FOLIC ACID TABLET (FP) PO SCH (10:09)
[2023-10-02] MEDS: MELATONIN 5 MG TABLETS PO SCH (21:57)
[2023-10-02] MEDS: THIAMINE HCL 100 MG TABLET (FP) PO SCH (21:58)
[2023-10-03] MEDS: ELVITEG/COB/EMTRI/TENOF (GENVOYA) TABLET PO SCH (07:06)
[2023-10-03] MEDS: PRENATAL VITAMINS W/ FOLIC ACID TABLET (FP) PO SCH (10:06)
[2023-10-03] MEDS: THIAMINE HCL 100 MG TABLET (FP) PO SCH (21:36)
[2023-10-03] MEDS: MELATONIN 5 MG TABLETS PO SCH (21:36)
[2023-10-04] MEDS: ELVITEG/COB/EMTRI/TENOF (GENVOYA) TABLET PO SCH (07:16)
[2023-10-04] MEDS: PRENATAL VITAMINS W/ FOLIC ACID TABLET (FP) PO SCH (10:16)
[2023-10-04] MEDS: THIAMINE HCL 100 MG TABLET (FP) PO SCH (23:46)
[2023-10-04] MEDS: MELATONIN 5 MG TABLETS PO SCH (23:46)
[2023-10-05] MEDS: ELVITEG/COB/EMTRI/TENOF (GENVOYA) TABLET PO SCH (07:43)
[2023-10-05] MEDS: PRENATAL VITAMINS W/ FOLIC ACID TABLET (FP) PO SCH (10:23)
[2023-10-05] MEDS: MELATONIN 5 MG TABLETS PO SCH (22:39)
[2023-10-05] MEDS: THIAMINE HCL 100 MG TABLET (FP) PO SCH (22:39)
[2023-10-06] MEDS: ELVITEG/COB/EMTRI/TENOF (GENVOYA) TABLET PO SCH (07:06)
[2023-10-06] MEDS: PRENATAL VITAMINS W/ FOLIC ACID TABLET (FP) PO SCH (10:11)
[2023-10-06] MEDS: MELATONIN 5 MG TABLETS PO SCH (22:42)
[2023-10-06] MEDS: THIAMINE HCL 100 MG TABLET (FP) PO SCH (22:42)
[2023-10-07] MEDS: ELVITEG/COB/EMTRI/TENOF (GENVOYA) TABLET PO SCH (07:15)
[2023-10-07] MEDS: PRENATAL VITAMINS W/ FOLIC ACID TABLET (FP) PO SCH (10:01)
[2023-10-07] MEDS: MELATONIN 5 MG TABLETS PO SCH (21:32)
[2023-10-07] MEDS: THIAMINE HCL 100 MG TABLET (FP) PO SCH (21:32)
[2023-10-08] MEDS: ELVITEG/COB/EMTRI/TENOF (GENVOYA) TABLET PO SCH (07:26)
[2023-10-08] MEDS: PRENATAL VITAMINS W/ FOLIC ACID TABLET (FP) PO SCH (09:33)
[2023-10-08] MEDS: MELATONIN 5 MG TABLETS PO SCH (21:41)
[2023-10-08] MEDS: THIAMINE HCL 100 MG TABLET (FP) PO SCH (21:41)
[2023-10-09] MEDS: ELVITEG/COB/EMTRI/TENOF (GENVOYA) TABLET PO SCH (07:12)
[2023-10-09] MEDS: PRENATAL VITAMINS W/ FOLIC ACID TABLET (FP) PO SCH (09:55)
[2023-10-09] MEDS: MELATONIN 5 MG TABLETS PO SCH (21:35)
[2023-10-09] MEDS: THIAMINE HCL 100 MG TABLET (FP) PO SCH (21:35)
[2023-10-10] MEDS: ELVITEG/COB/EMTRI/TENOF (GENVOYA) TABLET PO SCH (07:08)
[2023-10-10] MEDS: PRENATAL VITAMINS W/ FOLIC ACID TABLET (FP) PO SCH (09:34)
[2023-10-10] MEDS: THIAMINE HCL 100 MG TABLET (FP) PO SCH (23:18)
[2023-10-10] MEDS: MELATONIN 5 MG TABLETS PO SCH (23:18)
[2023-10-11] MEDS: ELVITEG/COB/EMTRI/TENOF (GENVOYA) TABLET PO SCH (07:13)
[2023-10-11] MEDS: PRENATAL VITAMINS W/ FOLIC ACID TABLET (FP) PO SCH (10:37)
[2023-10-11] MEDS: THIAMINE HCL 100 MG TABLET (FP) PO SCH (21:37)
[2023-10-11] MEDS: MELATONIN 5 MG TABLETS PO SCH (21:37)
[2023-10-12] MEDS: ELVITEG/COB/EMTRI/TENOF (GENVOYA) TABLET PO SCH (07:09)
[2023-10-12] MEDS: PRENATAL VITAMINS W/ FOLIC ACID TABLET (FP) PO SCH (09:47)
[2023-10-12] MEDS: MELATONIN 5 MG TABLETS PO SCH (21:26)
[2023-10-12] MEDS: THIAMINE HCL 100 MG TABLET (FP) PO SCH (21:26)
[2023-10-13] MEDS: ELVITEG/COB/EMTRI/TENOF (GENVOYA) TABLET PO SCH (07:04)
[2023-10-13] MEDS: PRENATAL VITAMINS W/ FOLIC ACID TABLET (FP) PO SCH (09:43)
[2023-10-13] MEDS: THIAMINE HCL 100 MG TABLET (FP) PO SCH (22:06)
[2023-10-13] MEDS: MELATONIN 5 MG TABLETS PO SCH (22:06)
[2023-10-14] MEDS: ELVITEG/COB/EMTRI/TENOF (GENVOYA) TABLET PO SCH (07:04)
[2023-10-14 07:11] VITALS: RESP 18; TEMP 97.5
[2023-10-14] MEDS: PRENATAL VITAMINS W/ FOLIC ACID TABLET (FP) PO SCH (09:58)
[2023-10-14] MEDS: THIAMINE HCL 100 MG TABLET (FP) PO SCH (21:31)
[2023-10-14] MEDS: MELATONIN 5 MG TABLETS PO SCH (21:31)
[2023-10-15] MEDS: BENZOCAINE/MENTHOL (CHLORASEPTIC ) LOZENGE MM PRN (06:48)
[2023-10-15 07:04] VITALS: BP 111/72; PULSE 65
[2023-10-15] MEDS: ELVITEG/COB/EMTRI/TENOF (GENVOYA) TABLET PO SCH (07:11)
[2023-10-15] MEDS: PRENATAL VITAMINS W/ FOLIC ACID TABLET (FP) PO SCH (10:26)
== END 2023-10-15 10:20 | disposition home or self-care (01) | DRG 772 ==
LOC: YASAS 12:31 → Y5N 15:54
PROVIDERS: ADMIT Allergy & Immunology; ATTEND Psychiatry & Neurology Pain Medicine
PROC: HZ42ZZZ Group Counseling for Substance Abuse Treatment, Cognitive-Behavioral (ICD-10-PCS; principal; 2023-09-18)
DX: F11.20 Opioid dependence, uncomplicated (principal); F42.4 Excoriation (skin-picking) disorder; Z21 Asymptomatic human immunodeficiency virus [HIV] infection status; D72.819 Decreased white blood cell count, unspecified; D64.9 Anemia, unspecified; Z86.19 Personal history of other infectious and parasitic diseases; Z59.02 Unsheltered homelessness
CPT/HCPCS: 0241U-QW; 36415; 71045-TC-FY; 80053; 81003; 85027; 86780; 87635

== ENCOUNTER 2024-01-07 12:31 | Inpatient (IN) | payer OTHER ==
[2024-01-07 14:12] VITALS: BMI 20.9
[2024-01-07] MEDS ORDERED: MAG HYDROX/AL HYDROX/SIMETH 30 ML UNIT-DOSE CUP PO PRN (15:23)
[2024-01-07] MEDS ORDERED: BENZONATATE 200 MG CAPSULE PO PRN (15:23)
[2024-01-07] MEDS ORDERED: LOPERAMIDE HCL 2 MG CAPSULE PO PRN (15:23)
[2024-01-07] MEDS ORDERED: NALOXONE HCL (KLOXXADO) 8 MG SPRAY NS PRN (15:23)
[2024-01-07] MEDS ORDERED: BENZOCAINE/MENTHOL (CHLORASEPTIC ) LOZENGE MM PRN (15:23)
[2024-01-07] MEDS ORDERED: guaiFENesin 600 MG TABLET.ER (FP) PO PRN (15:23)
[2024-01-07] MEDS ORDERED: NALOXONE HCL 0.4 MG/ML VIAL IM PRN (15:23)
[2024-01-07] MEDS ORDERED: MAGNESIUM HYDROX 2400MG/30ML ORAL SUSPENSION 30 ML CUP PO PRN (15:23)
[2024-01-07] MEDS ORDERED: POLYETHYLENE GLYCOL (HEALTHYLAX) 3350 17 GM PACKET PO PRN (15:23)
[2024-01-07] MEDS ORDERED: P-EPHED 60MG/TRIPROLIDI 2.5MG TABLET PO PRN (15:23)
[2024-01-07] MEDS ORDERED: hydrOXYzine PAMOATE 25 MG CAPSULE (FP) PO PRN (15:23)
[2024-01-07] MEDS: MELATONIN 5 MG TABLETS PO SCH (21:08)
[2024-01-07] MEDS: THIAMINE 100 MG TABLET PO SCH (21:08)
[2024-01-07] MEDS: TRIAMCINOLONE ACET 0.5% CREAM 15 GM TUBE TP SCH (22:49)
[2024-01-08] MEDS: ELVITEG/COB/EMTRI/TENOF (GENVOYA) TABLET PO SCH (07:29)
[2024-01-08] MEDS: methaDONE HCL 40 MG DISPERSABLE TABLET PO SCH (09:35)
[2024-01-08] MEDS: PRENATAL VITAMINS W/ FOLIC ACID TABLET (FP) PO SCH (09:35)
[2024-01-08 11:24] LABS: URINE APPEARANCE CLEAR; URINE BILIRUBIN NEGATIVE (NEGATIVE); URINE COLOR YELLOW; URINE GLUCOSE (UA) NEGATIVE (NEGATIVE); URINE KETONE TRACE (NEGATIVE); URINE LEUK ESTERASE NEGATIVE (NEGATIVE); URINE NITRITE NEGATIVE (NEGATIVE); URINE PROTEIN NEGATIVE (NEGATIVE); URINE UROBILINOGEN 0.2 mg/dL (0.2-1.0)
[2024-01-08 11:27] LABS: HEMATOCRIT 34.5 % (35.4-49); HEMOGLOBIN 11.2 GM/dL (11.7-16.9); MCH 30.3 pg (25.7-33.7); MCHC 32.5 g/dl (32.0-35.9); MEAN CELL VOLUME 93.1 fl (80-96); MEAN PLT VOLUME 9.2 fl (7.5-11.1); PLATELET COUNT 175 10^3/uL (134-434); RDW 13.8 % (11.9-15.9); WHITE BLOOD COUNT 3.1 K/mm3 (4.0-10.0)
[2024-01-08 11:32] LABS: POTASSIUM 4.2 mmol/L (3.5-5.1)
[2024-01-08 11:34] LABS: CALCIUM 9.4 mg/dL (8.5-10.1)
[2024-01-08 11:35] LABS: BLOOD UREA NITROGEN 17.1 mg/dL (7-18)
[2024-01-08 11:35] LABS: EPI CELLS 5 /uL (0-25.1); HYALINE CASTS 1 /uL (0-3.1); URINE BACTERIA 4 /uL (0-1359); URINE RBC 4 /uL (0-23.9); URINE WBC 14 /uL (0-25.8)
[2024-01-08 11:38] LABS: CREATININE 1.1 mg/dL (0.55-1.3)
[2024-01-08 11:39] LABS: TOT PROT 7.1 g/dl (6.4-8.2)
[2024-01-08 11:40] LABS: BILIRUBIN,TOTAL 0.2 mg/dL (0.2-1)
[2024-01-18] MEDS: ACETAMINOPHEN 325 MG TABLET (FP) PO PRN (21:13)
[2024-01-19] MEDS: PERMETHRIN 5% TOPICAL CREAM 60 GM TUBE TP SCH (14:48)
[2024-01-19] MEDS: LIDOCAINE 2.5%/PRILOCAINE 2.5% 30 GRAM TUBE TP SCH (21:44)
[2024-01-21] MEDS: LIDOCAINE 5% TOPICAL PATCH TP SCH (11:53)
[2024-01-21] MEDS: LIDOCAINE PATCH REMOVAL MC SCH (21:49)
[2024-01-29] MEDS: IBUPROFEN 600 MG TABLET (FP) PO PRN (06:26)
[2024-01-29] MEDS: IBUPROFEN 400 MG TABLET (FP) PO PRN (21:21)
[2024-02-02 07:02] VITALS: RESP 20
[2024-02-02] MEDS ORDERED: TRIAMCINOLONE ACET 0.5% CREAM 15 GM TUBE TP PRN (10:34)
[2024-02-02] MEDS ORDERED: LIDOCAINE 2.5%/PRILOCAINE 2.5% 30 GRAM TUBE TP PRN (10:34)
[2024-02-03 07:07] VITALS: BP 107/78; PULSE 56; TEMP 97.3
== END 2024-02-03 08:57 | disposition home or self-care (01) | DRG 772 ==
LOC: YASAS 12:31 → Y3W 16:46
PROVIDERS: ADMIT Allergy & Immunology; ATTEND Psychiatry & Neurology Pain Medicine
PROC: HZ42ZZZ Group Counseling for Substance Abuse Treatment, Cognitive-Behavioral (ICD-10-PCS; principal; 2024-01-07)
DX: F14.20 Cocaine dependence, uncomplicated (principal); F11.20 Opioid dependence, uncomplicated; F17.210 Nicotine dependence, cigarettes, uncomplicated; F19.282 Other psychoactive substance dependence with psychoactive substance-induced sleep disorder; Z21 Asymptomatic human immunodeficiency virus [HIV] infection status; F42.4 Excoriation (skin-picking) disorder; L30.9 Dermatitis, unspecified; M54.50 Low back pain, unspecified; G89.29 Other chronic pain; Z86.19 Personal history of other infectious and parasitic diseases; Z79.899 Other long term (current) drug therapy
CPT/HCPCS: 36415; 80053; 81003; 85027; 86780; 87811

== ENCOUNTER 2024-04-02 16:46 | Inpatient (IN) | payer OTHER ==
[2024-04-02 18:34] VITALS: BMI 24.7
[2024-04-02] MEDS ORDERED: NICOTINE POLACRILEX 2 MG LOZENGE BC PRN (20:52)
[2024-04-02] MEDS ORDERED: POLYETHYLENE GLYCOL (HEALTHYLAX) 3350 17 GM PACKET PO PRN (20:52)
[2024-04-02] MEDS ORDERED: P-EPHED 60MG/TRIPROLIDI 2.5MG TABLET PO PRN (20:52)
[2024-04-02] MEDS ORDERED: BENZOCAINE/MENTHOL (CHLORASEPTIC ) LOZENGE MM PRN (20:52)
[2024-04-02] MEDS ORDERED: LOPERAMIDE HCL 2 MG CAPSULE PO PRN (20:52)
[2024-04-02] MEDS ORDERED: NICOTINE POLACRILEX 2 MG GUM BUC PRN (20:52)
[2024-04-02] MEDS ORDERED: ACETAMINOPHEN 325 MG TABLET (FP) PO PRN (20:52)
[2024-04-02] MEDS ORDERED: MAGNESIUM HYDROX 2400MG/30ML ORAL SUSPENSION 30 ML CUP PO PRN (20:52)
[2024-04-02] MEDS ORDERED: IBUPROFEN 400 MG TABLET (FP) PO PRN (20:52)
[2024-04-02] MEDS ORDERED: NALOXONE (NARCAN) HCL 4 MG/0.1 ML SPRAY NS PRN (20:52)
[2024-04-02] MEDS ORDERED: NALOXONE HCL 0.4 MG/ML VIAL IM PRN (20:52)
[2024-04-02] MEDS ORDERED: MAG HYDROX/AL HYDROX/SIMETH 30 ML UNIT-DOSE CUP PO PRN (20:52)
[2024-04-02] MEDS ORDERED: BENZONATATE 200 MG CAPSULE PO PRN (20:52)
[2024-04-02] MEDS ORDERED: guaiFENesin 600 MG TABLET.ER (FP) PO PRN (20:52)
[2024-04-02] MEDS ORDERED: VITAMINS A AND D TOPICAL OINTMENT TP PRN (22:12)
[2024-04-02] MEDS ORDERED: MELATONIN 5 MG TABLETS ONE (22:17)
[2024-04-02] MEDS: MELATONIN 5 MG TABLETS PO SCH (22:19)
[2024-04-02] MEDS: THIAMINE 100 MG TABLET PO SCH (22:19)
[2024-04-03] MEDS: OFLOXACIN 0.3% OTIC SOLUTION 5 ML BOTTLE AD SCH (00:10)
[2024-04-03] MEDS: ELVITEG/COB/EMTRI/TENOF (GENVOYA) TABLET PO SCH (07:21)
[2024-04-03] MEDS: PRENATAL VITAMINS W/ FOLIC ACID TABLET (FP) PO SCH (10:58)
[2024-04-03] MEDS: methaDONE HCL 40 MG DISPERSABLE TABLET PO SCH (10:58)
[2024-04-03 11:16] LABS: HEMATOCRIT 33.8 % (35.4-49); HEMOGLOBIN 11.7 GM/dL (11.7-16.9); MCH 31.1 pg (25.7-33.7); MCHC 34.6 g/dl (32.0-35.9); MEAN CELL VOLUME 89.7 fl (80-96); MEAN PLT VOLUME 9.6 fl (7.5-11.1); PLATELET COUNT 152 10^3/uL (134-434); RBC 3.77 M/mm3 (4.00-5.60); WHITE BLOOD COUNT 2.8 K/mm3 (4.0-10.0)
[2024-04-03 11:18] LABS: POTASSIUM 3.8 mmol/L (3.5-5.1)
[2024-04-03 11:28] LABS: CALCIUM 8.9 mg/dL (8.5-10.1)
[2024-04-03 11:29] LABS: ALBUMIN 3.3 g/dl (3.4-5.0); BLOOD UREA NITROGEN 38.9 mg/dL (7-18)
[2024-04-03 11:33] LABS: BILIRUBIN,TOTAL 0.2 mg/dL (0.2-1); TOT PROT 7.8 g/dl (6.4-8.2)
[2024-04-03 11:46] LABS: SYPHILIS W/ RPR CONF NON-REACTIVE (NONREACTIVE)
[2024-04-03 15:56] LABS: URINE APPEARANCE CLEAR; URINE BILIRUBIN NEGATIVE (NEGATIVE); URINE COLOR YELLOW; URINE GLUCOSE (UA) NEGATIVE (NEGATIVE); URINE KETONE NEGATIVE (NEGATIVE); URINE LEUK ESTERASE NEGATIVE (NEGATIVE); URINE NITRITE NEGATIVE (NEGATIVE); URINE PROTEIN TRACE (NEGATIVE); URINE UROBILINOGEN 0.2 mg/dL (0.2-1.0)
[2024-04-06] MEDS: IBUPROFEN 600 MG TABLET (FP) PO PRN (06:49)
[2024-04-12] MEDS: CARBAMIDE PEROXIDE 6.5% OTIC 15 ML BOTTLE AU SCH (12:32)
[2024-04-16] MEDS: ELVITEG/COB/EMTRI/TENOF (GENVOYA) TABLET PO SCH (06:42)
[2024-04-30 06:38] VITALS: BP 106/74; PULSE 69; RESP 18; TEMP 97.1
== END 2024-04-30 09:50 | disposition home or self-care (01) | DRG 772 ==
LOC: YASAS 16:46 → Y3NR 21:11 → Y3E 04-05 11:30 → Y5N 04-13 14:32
PROVIDERS: ADMIT Allergy & Immunology; ATTEND Psychiatry & Neurology Pain Medicine
PROC: HZ42ZZZ Group Counseling for Substance Abuse Treatment, Cognitive-Behavioral (ICD-10-PCS; principal; 2024-04-02)
DX: F11.20 Opioid dependence, uncomplicated (principal); F14.20 Cocaine dependence, uncomplicated; F17.210 Nicotine dependence, cigarettes, uncomplicated; Z21 Asymptomatic human immunodeficiency virus [HIV] infection status; R01.1 Cardiac murmur, unspecified; L30.9 Dermatitis, unspecified; K42.9 Umbilical hernia without obstruction or gangrene; D64.9 Anemia, unspecified; H61.22 Impacted cerumen, left ear; Z56.0 Unemployment, unspecified; Z59.02 Unsheltered homelessness
CPT/HCPCS: 36415; 80053; 80305; 80307; 81003; 82962; 85027; 86780; 86803; 87522; 87811; 93005; 93010

== ENCOUNTER 2025-02-07 11:49 | Inpatient (IN) | payer OTHER ==
[2025-02-07 12:20] VITALS: BMI 25.1
[2025-02-07] MEDS ORDERED: LOPERAMIDE HCL 2 MG CAPSULE PO PRN (12:44)
[2025-02-07] MEDS ORDERED: guaiFENesin 600 MG TABLET.ER (FP) PO PRN (12:44)
[2025-02-07] MEDS ORDERED: hydrOXYzine PAMOATE 25 MG CAPSULE (FP) PO PRN (12:44)
[2025-02-07] MEDS ORDERED: MAG HYDROX/AL HYDROX/SIMETH 30 ML UNIT-DOSE CUP PO PRN (12:44)
[2025-02-07] MEDS ORDERED: BENZONATATE 200 MG CAPSULE PO PRN (12:44)
[2025-02-07] MEDS ORDERED: POLYETHYLENE GLYCOL (HEALTHYLAX) 3350 17 GM PACKET PO PRN (12:44)
[2025-02-07] MEDS ORDERED: IBUPROFEN 400 MG TABLET (FP) PO PRN (12:44)
[2025-02-07] MEDS ORDERED: ACETAMINOPHEN 325 MG TABLET (FP) PO PRN (12:44)
[2025-02-07] MEDS ORDERED: IBUPROFEN 600 MG TABLET (FP) PO PRN (12:44)
[2025-02-07] MEDS ORDERED: NALOXONE (NARCAN) HCL 4 MG/0.1 ML SPRAY NS PRN (12:44)
[2025-02-07] MEDS ORDERED: MAGNESIUM HYDROX 2400MG/30ML ORAL SUSPENSION 30 ML CUP PO PRN (12:44)
[2025-02-07] MEDS: BENZOCAINE/MENTHOL (CHLORASEPTIC ) LOZENGE MM PRN (15:56)
[2025-02-07] MEDS: THIAMINE 100 MG TABLET PO SCH (21:24)
[2025-02-07] MEDS: MELATONIN 5 MG TABLETS PO SCH (21:24)
[2025-02-07 22:29] LABS: PH,URINE 5.5 (5.0-8.0); URINE APPEARANCE CLEAR; URINE BILIRUBIN NEGATIVE (NEGATIVE); URINE COLOR YELLOW; URINE GLUCOSE (UA) NEGATIVE (NEGATIVE); URINE KETONE TRACE (NEGATIVE); URINE LEUK ESTERASE NEGATIVE (NEGATIVE); URINE NITRITE NEGATIVE (NEGATIVE); URINE PROTEIN NEGATIVE (NEGATIVE); URINE UROBILINOGEN 0.2 mg/dL (0.2-1.0)
[2025-02-08] MEDS ORDERED: methaDONE HCL 40 MG DISPERSABLE TABLET PO SCH (06:00)
[2025-02-08] MEDS: methaDONE HCL 40 MG DISPERSABLE TABLET PO SCH (06:41)
[2025-02-08] MEDS: ELVITEG/COB/EMTRI/TENOF (GENVOYA) TABLET PO SCH (07:04)
[2025-02-08] MEDS: PRENATAL VITAMINS W/ FOLIC ACID TABLET (FP) PO SCH (10:47)
[2025-02-08] MEDS: methaDONE HCL 10 MG TABLET PO ONE (10:47)
[2025-02-08 11:07] LABS: HEMATOCRIT 35.6 % (40.1-51.0); HEMOGLOBIN 11.3 g/dL (13.7-17.5); MCHC 31.7 g/dl (32.3-36.5); MEAN CELL VOLUME 94.2 fl (79.0-92.2); MEAN PLT VOLUME 11.7 fl (9.4-12.4); PLATELET COUNT 148 x10^3/uL (163-337); RDW 13.8 % (12.2-16.1)
[2025-02-08 11:11] LABS: POTASSIUM 3.5 mmol/L (3.5-5.1)
[2025-02-08 11:25] LABS: CALCIUM 9.4 mg/dL (8.5-10.1)
[2025-02-08 11:26] LABS: ALBUMIN 3.1 g/dl (3.4-5.0); BLOOD UREA NITROGEN 19.9 mg/dL (7-18)
[2025-02-08 11:29] LABS: CREATININE 1.1 mg/dL (0.55-1.3)
[2025-02-08 11:30] LABS: BILIRUBIN,TOTAL 0.2 mg/dL (0.2-1)
[2025-02-08 12:22] LABS: SYPHILIS W/ RPR CONF NON-REACTIVE (NONREACTIVE)
[2025-02-08 13:07] LABS: HCV DIAGNOSTIC IN-HOUSE W/RFLX REACTIVE (NONREACTIVE)
[2025-02-09] MEDS ORDERED: methaDONE HCL 40 MG DISPERSABLE TABLET PO SCH (06:00)
[2025-02-09] MEDS: methaDONE 40 MG, methaDONE 10 MG PO SCH (06:15)
[2025-02-15] MEDS: ELVITEG/COB/EMTRI/TENOF (GENVOYA) TABLET PO SCH (06:25)
[2025-02-16 06:44] VITALS: RESP 16
[2025-02-17 06:33] VITALS: PULSE 60
[2025-02-18 06:54] VITALS: BP 105/74
[2025-02-18 07:03] VITALS: TEMP 97.4
== END 2025-02-18 15:55 | disposition home or self-care (01) | DRG 772 ==
LOC: YASAS 11:49 → Y3W 13:58 → Y5N 02-10 12:37
PROVIDERS: ADMIT Psychiatry & Neurology Pain Medicine; ATTEND Psychiatry & Neurology Pain Medicine
PROC: HZ42ZZZ Group Counseling for Substance Abuse Treatment, Cognitive-Behavioral (ICD-10-PCS; principal; 2025-02-06)
DX: F11.20 Opioid dependence, uncomplicated (principal); F14.20 Cocaine dependence, uncomplicated; F19.282 Other psychoactive substance dependence with psychoactive substance-induced sleep disorder; F42.4 Excoriation (skin-picking) disorder; Z21 Asymptomatic human immunodeficiency virus [HIV] infection status; L30.9 Dermatitis, unspecified; Z86.19 Personal history of other infectious and parasitic diseases; Z79.899 Other long term (current) drug therapy; Z59.02 Unsheltered homelessness
CPT/HCPCS: 36415; 80053; 80305; 80307; 81003; 85027; 86780; 86803; 87522; 87811; 93005; 93010